=== PATIENT | female | born 1930 | race Caucasian/White ===

== ENCOUNTER 2016-07-01 08:32 | Emergency (ER) | payer MEDICARE ==
[2016-07-01] MEDS ORDERED: methylPREDNISolone 125 MG* 2 ML VIAL IV ONE (09:02)
[2016-07-01] MEDS ORDERED: Albuterol/Ipratropium NEB.SOL* Albuterol 2.5 MG/Ipratropium 0.5 MG 3 ML INH ONE (09:02)
[2016-07-01 09:36] LABS: Hematocrit 37 % (35-47); Hemoglobin 12.2 g/dl (12.0-16.0); Mean Corpuscular HGB Conc 33 g/dl (31-36); Mean Corpuscular Hemoglobin 30 pg (27-31); Mean Corpuscular Volume 89 fL (80-97); Mean Platelet Volume 8 um3 (7.4-10.4); Red Blood Count 4.11 10^6/ul (4.0-5.4); Red Cell Distribution Width 15 % (10.5-15); White Blood Count 16.5 10^3/ul (3.5-10.8)
--- NOTE | 2016-07-01 09:47 | RAD ---
Indication: Shortness of breath. Single frontal view of the chest performed at 0905 hours was reviewed. Comparison is made with previous exam dated January 27, 2016. No mediastinal shift is noted. Heart is of normal size and configuration. Lung diego appear clear. There may be some minimal atelectasis in the right lung base. IMPRESSION: LIKELY DISCOID ATELECTASIS IN THE RIGHT LUNG BASE.
[2016-07-01 09:48] LABS: Albumin 4.1 g/dL (3.2-5.2); BUN/Creatinine Ratio 18.4 (8-20); Calcium 9.6 mg/dL (8.6-10.3); EGFR African American 69.2 (>60); EGFR Non-African American 53.8 (>60); Globulin 3.1 g/dL (2-4); Potassium 4.1 mmol/L (3.5-5.0); Total Bilirubin 0.8 mg/dL (0.2-1.0); Total Protein 7.2 g/dL (6.4-8.9)
--- NOTE | 2016-07-01 09:48 | RAD ---
INDICATION: Right leg pain and shortness of breath. COMPARISON: There are no prior studies available for comparison. TECHNIQUE: Multiple real-time, color flow and Doppler tracings of the right lower extremity were obtained. FINDINGS: The common femoral, femoral, profunda femoral and popliteal veins all demonstrate normal compressibility, augmentation with compression and phasic response with respiration. The posterior tibial and peroneal veins demonstrate normal compressibility and augmentation with compression. IMPRESSION: NO EVIDENCE FOR DEEP VENOUS THROMBOSIS.
[2016-07-01 09:50] LABS: Troponin I 0.01 ng/mL (<0.04)
[2016-07-01 11:06] VITALS: BP 124/56
--- NOTE | 2016-07-02 08:07 | ED ---
Jemal Troy Adam, scribed for Dennis James MD on 07/01/16 at 0844 . Respiratory - HPI Summary HPI Summary: 86 year old female arrived to [facility] complaining of a constant cough and difficulty breathing. Her cough began three days ago, but worsened last night and waxes and wanes in its severity. She describes her cough as 'slightly" productive, but denies any fever. Additionally she has chronic right leg pain shooting down from hip, which is not significantly different from baseline. The patient has at home nebulizers which previously relieved her symptoms, but she states that they are no longer helping. She has a PMHx of UC, appendicitis, ovarian cyst removal, and pancreatitis. - History of Current Complaint Chief Complaint: EDAsthma Stated Complaint: DIFF BREATHING Time Seen by Provider: 07/01/16 08:41 Hx Obtained From: Patient Onset/Duration: Gradual Onset Initial Severity: Moderate Current Severity: Moderate Character: Cough (Productive) - slightly productive Sputum Amount: Scant Alleviating Factor(s): Neb. Bronchodilators (Frequency Of Use) - At home nebulizers no longer effective Associated Signs and Symptoms: SOB, Wheezing - Allergy/Home Medications Allergies/Adverse Reactions: Allergies Allergy/AdvReac Type Severity Reaction Status Date / Time Collagen Allergy Unknown Unknown Verified 12/16/15 08:54 Reaction Details Levofloxacin [From Levaquin] Allergy Hives Verified 12/16/15 08:54 Estrogens AdvReac Mild See Comment Verified 12/16/15 08:54 PMH/Surg Hx/FS Hx/Imm Hx Endocrine/Hematology History: Denies: Hx Anticoagulant Therapy, Hx Diabetes, Hx Systemic Lupus Erythematosus, Hx Thyroid Disease Cardiovascular History: Reports: Hx Hypercholesterolemia, Hx Hypertension, Other Cardiovascular Problems/Disorders - aortic athlerosclerosis Denies: Hx Congestive Heart Failure, Hx Pacemaker/ICD Respiratory History: Reports: Hx Asthma, Hx Chronic Obstructive Pulmonary Disease (COPD) GI History: Reports: Hx Gastroesophageal Reflux Disease, Hx Ileostomy, Hx Ulcer , Other GI Disorders - hx colitis with large colon removed,hx pancreatitis current epigastric pain History: Reports: Hx Kidney Infection, Hx Kidney Stones, Other Problems/ Disorders - Kidney infection Denies: Hx Dialysis, Hx Renal Disease Musculoskeletal History: Reports: Hx Arthritis, Hx Osteoporosis, Other Musculoskeletal History - fx: left wrist and ankle Denies: Hx Rheumatoid Arthritis Sensory History: Reports: Hx Cataracts, Hx Contacts or Glasses, Hx Vision Problem Opthamlomology History: Reports: Hx Cataracts, Hx Contacts or Glasses, Hx Vision Problem Neurological History: Denies: Hx Dementia, Hx Seizures Psychiatric History: Denies: Hx Substance Abuse - Cancer History Hx Chemotherapy: No - Surgical History Surgery Procedure, Year, and Place: hysterectomy, large intestine r/t colitis, zee, cataracts, cholecystectomy, appendectomy Hx Anesthesia Reactions: No - Immunization History Date of Tetanus Vaccine: unknown Date of Influenza Vaccine: 2013 Infectious Disease History: No Infectious Disease History: Denies: Hx Clostridium Difficile, Hx Hepatitis, Hx Human Immunodeficiency Virus (HIV), Hx of Known/Suspected MRSA, Hx Shingles, Hx Tuberculosis, Hx Known/ Suspected VRE, Hx Known/Suspected VRSA, Traveled Outside the [place] in Last 30 Days - Family History Known Family History: Positive: Other Negative: Cardiac Disease, Diabetes Family History: Father -- pancreatic CA. - Social History Alcohol Use: None Hx Substance Use: No Substance Use Type: Reports: None Hx Tobacco Use: Yes Smoking Status (MU): Former Smoker Review of Systems Negative: Fever, Chills Negative: Erythema Negative: Sore Throat Positive: Shortness Of Breath, Cough Negative: Vomiting, Diarrhea, Nausea Negative: dysuria, hematuria Negative: Myalgia Negative: Rash, Other Neurological: Other - no dizziness All Other Systems Reviewed And Are Negative: Yes Physical Exam - Summary Physical Exam Summary: Constitutional: Well-developed, Well-nourished, Alert. (-) Distressed Skin: Warm, Dry HENT: Normocephalic; Atraumatic Eyes: Conjunctiva normal Neck: Musculoskeletal ROM normal neck. (-) JVD, (-) Stridor, (-) Tracheal deviation Cardio: Rhythm regular, rate normal, Heart sounds normal; Intact distal pulses; The pedal pulses are 2+ and symmetric. Radial pulses are 2+ and symmetric. (-) Murmur Pulmonary/Chest wall: Expiratory wheezes, tachypnea, no palpable tenderness or swelling, (-) Rales Abd: Soft, (-) Tenderness, (-) Distension, (-) Guarding, (-) Rebound Musculoskeletal: (-) Edema Lymph: (-) Cervical adenopathy Neuro: Alert, Oriented x3 Psych: Mood and affect Normal Triage Information Reviewed: Yes Vital Signs On Initial Exam: Initial Vitals Temp Pulse Resp BP Pulse Ox 98.1 F 107 24 142/78 100 07/01/16 08:34 07/01/16 08:34 07/01/16 08:34 07/01/16 08:34 07/01/16 08:34 Vital Signs Reviewed: Yes Diagnostics - Vital Signs Vital Signs Temp Pulse Resp BP Pulse Ox 07/01/16 08:34 98.1 F 107 24 142/78 100 - Laboratory Lab Results: Lab Results 07/01/16 07/01/16 07/01/16 Range/Units 09:15 09:15 09:15 WBC 16.5 H (3.5-10.8) 10^3/ul RBC 4.11 (4.0-5.4) 10^6/ul Hgb 12.2 (12.0-16.0) g/dl Hct 37 (35-47) % MCV 89 (80-97) fL MCH 30 (27-31) pg MCHC 33 (31-36) g/dl RDW 15 (10.5-15) % Plt Count 337 (150-450) 10^3/ul MPV 8 (7.4-10.4) um3 Neut % (Auto) 83.8 H (38-83) % Lymph % (Auto) 7.1 L (25-47) % [place] % (Auto) 6.2 (1-9) % Eos % (Auto) 2.2 (0-6) % Baso % (Auto) 0.7 (0-2) % Absolute Neuts (auto) 13.8 H (1.5-7.7) 10^3/ul Absolute Lymphs (auto) 1.2 (1.0-4.8) 10^3/ul Absolute Monos (auto) 1.0 H (0-0.8) 10^3/ul Absolute Eos (auto) 0.4 (0-0.6) 10^3/ul Absolute Basos (auto) 0.1 (0-0.2) 10^3/ul Absolute Nucleated RBC 0.01 10^3/ul Nucleated RBC % 0.1 D-Dimer, Quantitative (Less Than 230) ng/mL Sodium 136 (133-145) mmol/L Potassium 4.1 (3.5-5.0) mmol/L Chloride 105 (101-111) mmol/L Carbon Dioxide 20 L (22-32) mmol/L Anion Gap 11 (2-11) mmol/L BUN 18 (6-24) mg/dL Creatinine 0.98 H (0.51-0.95) mg/dL Est GFR ( Amer) 69.2 (>60) Est GFR (Non-Af Amer) 53.8 (>60) BUN/Creatinine Ratio 18.4 (8-20) Glucose 112 H (70-100) mg/dL Lactic Acid 1.1 (0.5-2.0) mmol/L Calcium 9.6 (8.6-10.3) mg/dL Total Bilirubin 0.80 (0.2-1.0) mg/dL AST 19 (13-39) U/L ALT 14 (7-52) U/L Alkaline Phosphatase 58 (34-104) U/L Troponin I 0.01 (<0.04) ng/mL Total Protein 7.2 (6.4-8.9) g/dL Albumin 4.1 (3.2-5.2) g/dL Globulin 3.1 (2-4) g/dL Albumin/Globulin Ratio 1.3 (1-3) 07/01/16 Range/Units 09:15 WBC (3.5-10.8) 10^3/ul RBC (4.0-5.4) 10^6/ul Hgb (12.0-16.0) g/dl Hct (35-47) % MCV (80-97) fL MCH (27-31) pg MCHC (31-36) g/dl RDW (10.5-15) % Plt Count (150-450) 10^3/ul MPV (7.4-10.4) um3 Neut % (Auto) (38-83) % Lymph % (Auto) (25-47) % [place] % (Auto) (1-9) % Eos % (Auto) (0-6) % Baso % (Auto) (0-2) % Absolute Neuts (auto) (1.5-7.7) 10^3/ul Absolute Lymphs (auto) (1.0-4.8) 10^3/ul Absolute Monos (auto) (0-0.8) 10^3/ul Absolute Eos (auto) (0-0.6) 10^3/ul Absolute Basos (auto) (0-0.2) 10^3/ul Absolute Nucleated RBC 10^3/ul Nucleated RBC % D-Dimer, Quantitative 208 (Less Than 230) ng/mL Sodium (133-145) mmol/L Potassium (3.5-5.0) mmol/L Chloride (101-111) mmol/L Carbon Dioxide (22-32) mmol/L Anion Gap (2-11) mmol/L BUN (6-24) mg/dL Creatinine (0.51-0.95) mg/dL Est GFR ( Amer) (>60) Est GFR (Non-Af Amer) (>60) BUN/Creatinine Ratio (8-20) Glucose (70-100) mg/dL Lactic Acid (0.5-2.0) mmol/L Calcium (8.6-10.3) mg/dL Total Bilirubin (0.2-1.0) mg/dL AST (13-39) U/L ALT (7-52) U/L Alkaline Phosphatase (34-104) U/L Troponin I (<0.04) ng/mL Total Protein (6.4-8.9) g/dL Albumin (3.2-5.2) g/dL Globulin (2-4) g/dL Albumin/Globulin Ratio (1-3) Result Diagrams: 07/01/16 09:15 07/01/16 09:15 Lab Statement: Any lab studies that have been ordered have been reviewed, and results considered in the medical decision making process. - Radiology CXR Radiology Interpretation Completed By: Radiologist - IMPRESSION: LIKELY DISCOID ATELECTASIS IN THE RIGHT LUNG BASE. - Ultrasound No standard instances Ultrasound Interpretation Completed By: Radiologist - IMPRESSION: NO EVIDENCE FOR DEEP VENOUS THROMBOSIS. - EKG 09:30 Cardiac Rate: NL - 102 BPM EKG Rhythm: Sinus Tachycardia EKG Interpretation: no STEMI Disposition - Course Course Of Treatment: 11:25 - Pt is feeling much better. She ambulated and her o2 sat was 92%. She will be discharged home and follow up with her PCP in 2 days. - Diagnoses Provider Diagnoses: COPD exacerbation Discharge - Discharge Plan Condition: Stable Disposition: HOME Prescriptions: Albuterol/Ipratropium NEB.VIRGILIO* [Duoneb NEB.VIRGILIO*] 1 neb INH Q4H PRN #30 neb.soln PRN Reason: Sob/Wheezing DOXYcycline CAP(*) [DOXYcycline 100MG CAP(*)] 100 mg PO BID #14 cap predniSONE TAB* [Deltasone TAB*] 40 mg PO DAILY #8 tab Patient Education Materials: COPD (Chronic Obstructive Pulmonary Disease) (ED) Referrals: Halie Kulkarni MD [Primary Care Provider] - Additional Instructions: Follow up with Dr. Kulkarni in 2 days. The documentation as recorded by the Jemal greenberg Adam accurately reflects the service I personally performed and the decisions made by Erika ga Jerry, MD.
== END 2016-07-01 12:42 | disposition home or self-care (01) ==
LOC: ED 08:32
DX: J44.1 Chronic obstructive pulmonary disease with (acute) exacerbation (principal); I10 Essential (primary) hypertension; Z87.891 Personal history of nicotine dependence; E78.00 Pure hypercholesterolemia, unspecified; K21.9 Gastro-esophageal reflux disease without esophagitis; M79.604 Pain in right leg; G89.29 Other chronic pain
CPT/HCPCS: 36415; 71010; 80053; 83605; 84484; 85025; 85379; 93005; 94640; 96374; 99283; A9270-GY; J2930

== ENCOUNTER 2016-10-21 05:12 | Emergency (ER) | payer MEDICARE ==
[2016-10-21] MEDS ORDERED: Ondansetron INJ* 2 MG/ML VIAL IV ONE (05:22)
[2016-10-21] MEDS ORDERED: Morphine INJ* 4 MG/ML 1 ML SYRINGE IV ONE ×2 (05:22→06:29)
[2016-10-21] MEDS ORDERED: NS 0.9% 1000 ML* 1,000 ML IV ONE (05:22)
[2016-10-21 06:00] LABS: Hematocrit 40 % (35-47); Mean Corpuscular HGB Conc 33 g/dl (31-36); Mean Corpuscular Hemoglobin 29 pg (27-31); Mean Corpuscular Volume 90 fL (80-97); Mean Platelet Volume 8 um3 (7.4-10.4); Red Blood Count 4.45 10^6/ul (4.0-5.4); Red Cell Distribution Width 14 % (10.5-15); White Blood Count 15.4 10^3/ul (3.5-10.8)
[2016-10-21 06:09] LABS: Albumin 4.3 g/dL (3.2-5.2); BUN/Creatinine Ratio 21.5 (8-20); C Reactive Protein 10.34 mg/L (< 5.00); Calcium 9.4 mg/dL (8.6-10.3); EGFR African American 54.3 (>60); EGFR Non-African American 42.2 (>60); Globulin 2.7 g/dL (2-4); Potassium 4.2 mmol/L (3.5-5.0); Total Bilirubin 0.6 mg/dL (0.2-1.0)
--- NOTE | 2016-10-21 07:00 | ED ---
Shagufta Troy Alok, scribed for Kendra Dsouza MD on 10/21/16 at 0525 . Abdominal Pain/Female - HPI Summary HPI Summary: 86F presents to the ED with LLQ pain radiating to the LUQ since 0100 this evening. Pt has h/o kidney stones and states that her pain feels similar to that. PMHx includes chronic dyspnea ever since her bladder lift. - History of Current Complaint Chief Complaint: EDAbdPain Stated Complaint: ABD PAIN Hx Obtained From: Patient ?: No Onset/Duration: Lasting Hours, Still Present Timing: Constant Severity Initially: Moderate Severity Currently: Moderate Pain Intensity: 9 Pain Scale Used: 0-10 Numeric Location: Discrete At: LLQ Radiates: Yes Radiates to: Other - LUQ Aggravating Factor(s): Nothing Alleviating Factor(s): Nothing Associated Signs and Symptoms: Positive: Urinary Symptoms - dysuria (chronic). Negative: Fever Allergies/Adverse Reactions: Allergies Allergy/AdvReac Type Severity Reaction Status Date / Time Collagen Allergy Unknown Unknown Verified 10/21/16 05:15 Reaction Details Levofloxacin [From Levaquin] Allergy Hives Verified 10/21/16 05:15 Estrogens AdvReac Mild See Comment Verified 10/21/16 05:15 PMH/Surg Hx/FS Hx/Imm Hx Endocrine/Hematology History: Denies: Hx Anticoagulant Therapy, Hx Diabetes, Hx Systemic Lupus Erythematosus, Hx Thyroid Disease Cardiovascular History: Reports: Hx Hypercholesterolemia, Hx Hypertension, Other Cardiovascular Problems/Disorders - aortic athlerosclerosis Denies: Hx Congestive Heart Failure, Hx Pacemaker/ICD Respiratory History: Reports: Hx Asthma, Hx Chronic Obstructive Pulmonary Disease (COPD) GI History: Reports: Hx Gastroesophageal Reflux Disease, Hx Ileostomy, Hx Ulcer , Other GI Disorders - hx colitis with large colon removed,hx pancreatitis current epigastric pain History: Reports: Hx Kidney Infection, Hx Kidney Stones, Other Problems/ Disorders - Kidney infection Denies: Hx Dialysis, Hx Renal Disease Musculoskeletal History: Reports: Hx Arthritis, Hx Osteoporosis, Other Musculoskeletal History - fx: left wrist and ankle Denies: Hx Rheumatoid Arthritis Sensory History: Reports: Hx Cataracts, Hx Contacts or Glasses, Hx Vision Problem Opthamlomology History: Reports: Hx Cataracts, Hx Contacts or Glasses, Hx Vision Problem Neurological History: Denies: Hx Dementia, Hx Seizures Psychiatric History: Denies: Hx Substance Abuse - Cancer History Hx Chemotherapy: No - Surgical History Surgery Procedure, Year, and Place: hysterectomy, large intestine r/t colitis, zee, cataracts, cholecystectomy, appendectomy Hx Anesthesia Reactions: No - Immunization History Date of Tetanus Vaccine: unknown Date of Influenza Vaccine: 2013 Infectious Disease History: No Infectious Disease History: Denies: Hx Clostridium Difficile, Hx Hepatitis, Hx Human Immunodeficiency Virus (HIV), Hx of Known/Suspected MRSA, Hx Shingles, Hx Tuberculosis, Hx Known/ Suspected VRE, Hx Known/Suspected VRSA, Traveled Outside the [place] in Last 30 Days - Family History Known Family History: Negative: Cardiac Disease, Diabetes Family History: Father -- pancreatic CA. - Social History Occupation: Retired Lives: Alone Alcohol Use: None Hx Substance Use: No Substance Use Type: Reports: None Hx Tobacco Use: Yes Smoking Status (MU): Former Smoker Review of Systems Negative: Fever Positive: dysuria - (chronic), flank pain All Other Systems Reviewed And Are Negative: Yes Physical Exam Triage Information Reviewed: Yes Vital Signs On Initial Exam: Initial Vitals Temp Pulse Resp BP Pulse Ox 97.7 F 79 18 185/59 97 10/21/16 05:15 10/21/16 05:15 10/21/16 05:15 10/21/16 05:15 10/21/16 05:15 Vital Signs Reviewed: Yes Appearance: Positive: Well-Appearing, No Pain Distress Skin: Positive: Warm, Skin Color Reflects Adequate Perfusion, Dry Eyes: Positive: EOMI, LISSETTE ENT: Positive: Pharynx normal, TMs normal Neck: Positive: Supple, Nontender Respiratory/Lung Sounds: Positive: Clear to Auscultation, Breath Sounds Present. Negative: Rales, Rhonchi, Wheezes Cardiovascular: Positive: RRR, Other - no gallop. Negative: Murmur, Rub Abdomen Description: Positive: Soft, Other: - no rebound. Left flank pain. No abdominal tenderness. Bowel Sounds: Positive: Present Musculoskeletal: Positive: Strength/ROM Intact, Other - CVA tenderness. Negative: Edema Left, Edema Right Neurological: Positive: Sensory/Motor Intact, Alert, Oriented to Person Place, Time, CN Intact II-III Psychiatric: Positive: Affect/Mood Appropriate Diagnostics - Vital Signs Vital Signs Temp Pulse Resp BP Pulse Ox 10/21/16 05:17 97.7 F 79 18 185/59 97 10/21/16 05:15 97.7 F 79 18 [id number] 97 - Laboratory Lab Results: Lab Results 10/21/16 10/21/16 10/21/16 Range/Units 05:30 05:30 05:30 WBC 15.4 H (3.5-10.8) 10^3/ul RBC 4.45 (4.0-5.4) 10^6/ul Hgb 13.0 (12.0-16.0) g/dl Hct 40 (35-47) % MCV 90 (80-97) fL MCH 29 (27-31) pg MCHC 33 (31-36) g/dl RDW 14 (10.5-15) % Plt Count 365 (150-450) 10^3/ul MPV 8 (7.4-10.4) um3 Neut % (Auto) 85.5 H (38-83) % Lymph % (Auto) 8.0 L (25-47) % [place] % (Auto) 4.5 (1-9) % Eos % (Auto) 1.3 (0-6) % Baso % (Auto) 0.7 (0-2) % Absolute Neuts (auto) 13.2 H (1.5-7.7) 10^3/ul Absolute Lymphs (auto) 1.2 (1.0-4.8) 10^3/ul Absolute Monos (auto) 0.7 (0-0.8) 10^3/ul Absolute Eos (auto) 0.2 (0-0.6) 10^3/ul Absolute Basos (auto) 0.1 (0-0.2) 10^3/ul Absolute Nucleated RBC 0.01 10^3/ul Nucleated RBC % 0.1 Sodium 135 (133-145) mmol/L Potassium 4.2 (3.5-5.0) mmol/L Chloride 108 (101-111) mmol/L Carbon Dioxide 21 L (22-32) mmol/L Anion Gap 6 (2-11) mmol/L BUN 26 H (6-24) mg/dL Creatinine 1.21 H (0.51-0.95) mg/dL Est GFR ( Amer) 54.3 (>60) Est GFR (Non-Af Amer) 42.2 (>60) BUN/Creatinine Ratio 21.5 H (8-20) Glucose 112 H (70-100) mg/dL Lactic Acid 1.2 (0.5-2.0) mmol/L Calcium 9.4 (8.6-10.3) mg/dL Total Bilirubin 0.60 (0.2-1.0) mg/dL AST 15 (13-39) U/L ALT 12 (7-52) U/L Alkaline Phosphatase 48 (34-104) U/L C-Reactive Protein 10.34 H (< 5.00) mg/L Total Protein 7.0 (6.4-8.9) g/dL Albumin 4.3 (3.2-5.2) g/dL Globulin 2.7 (2-4) g/dL Albumin/Globulin Ratio 1.6 (1-3) Lipase 257 H (11.0-82.0) U/L Result Diagrams: 10/21/16 05:30 10/21/16 05:30 Lab Statement: Any lab studies that have been ordered have been reviewed, and results considered in the medical decision making process. - CT abd/pel CT CT Interpretation: Positive (See Comments) - IMPRESSION: OBSTRUCTING CALCULUS IN THE DISTAL LEFT URETER CT Interpretation Completed By: Radiologist Abdominal Pain Fem Course/Dx - Course Course Of Treatment: 86 yo female with chronic pancreatitis no pain now, but with left flank pain and 3 mm ureteral stone, pt will be signed out to Dr. Newsome , urine still needs to be obtained - Diagnoses Provider Diagnoses: Ureteral stone Discharge - Discharge Plan Condition: Stable Disposition: OTHER Discharge Disposition Comment: to be determined The documentation as recorded by the Shagufta greenberg Alok accurately reflects the service I personally performed and the decisions made by me, Kendra Dsouza MD.
[2016-10-21] MEDS ORDERED: NS 0.9% 1000 ML* 500 ML IV ONE (08:01)
--- NOTE | 2016-10-21 08:37 | RAD ---
INDICATION: Left flank abdominal pain. COMPARISON: Comparison is made with a prior CT of the abdomen and pelvis from January 27, 2016. TECHNIQUE: A CT scan of the abdomen and pelvis was performed without intravenous or oral contrast. Contiguous axial sections were obtained from the lung bases through the symphysis pubis. Images were reconstructed in the coronal and sagittal planes. FINDINGS: There is mild to moderate emphysematous changes noted at the lung bases. There is a small Bochdalek hernia present at the posterior right lung base containing fat. No pleural effusion is present. The liver and spleen are normal in size without significant focal abnormality on this noncontrast study. The patient is status post cholecystectomy. The pancreas appears to be within normal limits. The adrenal glands are normal in size. The right kidney is normal in size there is a 4 mm calculus in the lower pole of the kidney. The left kidney appears slightly enlarged. There is mild perinephric stranding. There is a 1 mm calculus in the midportion of the kidney. In addition the left renal calyces, pelvis and ureter are distended into the pelvis to the level of a 3.5 mm calculus in the distal left ureter which is located approximate 4 cm proximal to the ureterovesical junction. This is causing moderate hydronephrosis. The abdominal aorta is normal in caliber. There is moderate to severe calcific plaque present. No significant enlarged retroperitoneal lymph nodes are seen. The stomach and small bowel are nondistended. The patient is status post total colectomy. There is an ileostomy in the right lower quadrant. The patient is status post hysterectomy. No free intraperitoneal air or fluid is seen. There is grade 1 anterior spondylolisthesis at the L4-L5 level. No significant focal osseous abnormality is seen. IMPRESSION: 1. BILATERAL RENAL CALCULI. IN ADDITION THERE IS A 3.5 MM CALCULUS IN THE DISTAL LEFT URETER CAUSING MODERATE HYDRONEPHROSIS. 2. STATUS POST CHOLECYSTECTOMY, HYSTERECTOMY AND TOTAL COLECTOMY. THERE IS AN ILEOSTOMY IN THE RIGHT LOWER QUADRANT.
[2016-10-21 10:09] LABS: Urine Bacteria 1+ (Absent); Urine Bilirubin Negative (Negative); Urine Glucose Negative (Negative); Urine Nitrite Positive (Negative)
[2016-10-21] MEDS ORDERED: Sulfamethox/Trimethoprim DS 800/160* TAB PO ONE (10:32)
[2016-10-21 11:13] VITALS: BP 139/52
== END 2016-10-21 11:13 | disposition home or self-care (01) ==
LOC: ED 05:12
DX: R10.12 Left upper quadrant pain (principal); N21.1 Calculus in urethra; R30.0 Dysuria
CPT/HCPCS: 36415; 74176; 80053; 81003; 81015; 83605; 83690; 85025; 86140; 87086; 96374; 96375; 99283; A9270-GY; J2270; J2405

== ENCOUNTER 2016-12-07 07:29 | Emergency (ER) | payer MEDICARE ==
[2016-12-07 07:35] VITALS: BP 164/80
[2016-12-07] MEDS ORDERED: Orphenadrine Citrate IV* 30 MG/ML 2 ML VIAL IV ONE (08:01)
[2016-12-07] MEDS ORDERED: fentaNYL* 50 MCG/ML 2 ML VIAL (100 MCG VIAL) IV SLOW PU ONE (08:01)
[2016-12-07] MEDS ORDERED: Dexamethasone IV* 4 MG/ML 1 ML (4 MG) IV SLOW PU ONE (08:01)
[2016-12-07] MEDS ORDERED: Ondansetron INJ* 2 MG/ML VIAL IV ONE (08:01)
[2016-12-07] MEDS ORDERED: Ketorolac INJ* 30 MG/ML 1 ML VIAL IV PUSH ONE (09:03)
--- NOTE | 2016-12-07 09:35 | RAD ---
Indication: RIGHT hip and leg pain. Sciatica pain. Comparison: October 21, 2016 CT. Technique: AP and lateral views lumbar sacral spine. Report: Grade 2 degenerative L4-L5 anterolisthesis is chronic. Alignment is otherwise normal. No vertebral body fracture or gross evidence for spondylolysis. Mild to moderate L4-L5 disc space narrowing without change. Facet joint osteoarthritis most marked at L4-L5 and L5-S1. Atherosclerotic calcification of the abdominal aorta. Unremarkable paraspinal soft tissue contours. Gallbladder fossa level surgical clips. IMPRESSION: Chronic findings of degenerative spondylosis, facet joint osteoarthritis, and grade 2 degenerative L4-L5 anterolisthesis. No acute radiographic abnormality evident.
--- NOTE | 2016-12-07 09:37 | RAD ---
Indication: RIGHT hip pain. Sciatica. Comparison: October 21, 2016 CT. Technique: AP pelvis and AP and frog-leg lateral views RIGHT hip. Report: Negative for fracture of the RIGHT proximal femur or pelvis. Normal articular alignment. Minimal osteophytic lipping at the RIGHT acetabulum. Negative for significant hip joint space narrowing. Similar mild arthropathy at the LEFT hip. Mild degenerative arthropathy at the sacroiliac joints and pubic symphysis. Unremarkable soft tissue contours. 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
--- NOTE | 2016-12-07 11:42 | ED ---
Sandra Troy SooYoung, scribed for Tin Newsome MD on 12/07/16 at 0806 . Lower Extremity - HPI Summary HPI Summary: An 86 y/o F presents to ED with c/o R hip and leg pain onset 0100. She notes having previous episodes of similar pain, but this episode feels worse. Unsure of the previous dx, but remembers being given a shot for the pain. Both daughter and pt think it may be sciatica-related. Denies back pain. Aggravating factors: walking. Pert PMHx: osteoporosis. - History of Current Complaint Chief Complaint: EDHipPelvisInjury Stated Complaint: RIGHT LEG AND HIP PAIN Time Seen by Provider: 12/07/16 07:55 Hx Obtained From: Patient, Family/Workday Director - daughter Onset of Pain: Hours - approx 0100, Prior to Arrival Onset/Duration: Still Present Severity Currently: Severe Pain Intensity: 9 Pain Scale Used: 0-10 Numeric Timing: Constant Location: Is Discrete @ - R hip, R thigh Associated Signs And Symptoms: Positive: Other - neg: back pain Aggravating Factor(s): Ambulation - Allergies/Home Medications Allergies/Adverse Reactions: Allergies Allergy/AdvReac Type Severity Reaction Status Date / Time Collagen Allergy Unknown Unknown Verified 12/07/16 07:59 Reaction Details Levofloxacin [From Levaquin] Allergy Hives Verified 12/07/16 07:59 Estrogens AdvReac Mild See Comment Verified 12/07/16 07:59 PMH/Surg Hx/FS Hx/Imm Hx Previously Healthy: No Endocrine/Hematology History: Denies: Hx Anticoagulant Therapy, Hx Diabetes, Hx Systemic Lupus Erythematosus, Hx Thyroid Disease Cardiovascular History: Reports: Hx Hypercholesterolemia, Hx Hypertension, Other Cardiovascular Problems/Disorders - aortic athlerosclerosis Denies: Hx Congestive Heart Failure, Hx Pacemaker/ICD Respiratory History: Reports: Hx Asthma, Hx Chronic Obstructive Pulmonary Disease (COPD) GI History: Reports: Hx Gastroesophageal Reflux Disease, Hx Ileostomy, Hx Ulcer , Other GI Disorders - hx colitis with large colon removed,hx pancreatitis current epigastric pain History: Reports: Hx Kidney Infection, Hx Kidney Stones, Other Problems/ Disorders - Kidney infection Denies: Hx Dialysis, Hx Renal Disease Musculoskeletal History: Reports: Hx Arthritis, Hx Osteoporosis, Other Musculoskeletal History - fx: left wrist and ankle Denies: Hx Rheumatoid Arthritis Sensory History: Reports: Hx Cataracts, Hx Contacts or Glasses, Hx Vision Problem Opthamlomology History: Reports: Hx Cataracts, Hx Contacts or Glasses, Hx Vision Problem Neurological History: Denies: Hx Dementia, Hx Seizures Psychiatric History: Denies: Hx Substance Abuse - Cancer History Hx Chemotherapy: No - Surgical History Surgery Procedure, Year, and Place: hysterectomy, large intestine r/t colitis, zee, cataracts, cholecystectomy, appendectomy Hx Anesthesia Reactions: No - Immunization History Date of Tetanus Vaccine: unknown Date of Influenza Vaccine: 2013 Infectious Disease History: No Infectious Disease History: Denies: Hx Clostridium Difficile, Hx Hepatitis, Hx Human Immunodeficiency Virus (HIV), Hx of Known/Suspected MRSA, Hx Shingles, Hx Tuberculosis, Hx Known/ Suspected VRE, Hx Known/Suspected VRSA, Traveled Outside the [place] in Last 30 Days - Family History Known Family History: Positive: Other Negative: Cardiac Disease, Diabetes Family History: Father -- pancreatic CA. - Social History Occupation: Retired Lives: Alone Alcohol Use: None Hx Substance Use: No Substance Use Type: Reports: None Hx Tobacco Use: Yes Smoking Status (MU): Former Smoker Review of Systems Negative: Fever Positive: Other - pos: R hip and thigh pain; neg back pain All Other Systems Reviewed And Are Negative: Yes Physical Exam - Summary Physical Exam Summary: VITAL SIGNS: Reviewed. GENERAL: Patient is a well-developed and nourished female who is lying comfortable in the stretcher. Patient is not in any acute respiratory distress. HEAD AND FACE: No signs of trauma. No ecchymosis, hematomas or skull depressions. No sinus tenderness. EYES: PERRLA, EOMI x 2, No injected conjunctiva, no nystagmus. EARS: Hearing grossly intact. Ear canals and tympanic membranes are within normal limits. MOUTH: Oropharynx within normal limits. NECK: Supple, trachea is midline, no adenopathy, no JVD, no carotid bruit, no c- spine tenderness, neck with full ROM. CHEST: Symmetric, no tenderness at palpation LUNGS: Clear to auscultation bilaterally. No wheezing or crackles. CVS: Regular rate and rhythm, S1 and S2 present, no murmurs or gallops appreciated. ABDOMEN: Soft, non-tender. No signs of distention. No rebound, no guarding, and no masses palpated. Bowel sounds are normal. EXTREMITIES: POSITIVE TENDERNESS FROM R GLUTEUS INTO LATERAL ASPECT OF R THIGH, GOOD ROM WITH PULSES. STRAIGHT LEG TEST IS NEGATIVE. no edema, no cyanosis or clubbing. NEURO: Alert and oriented x 3. No acute neurological deficits. Speech is normal and follows commands. SKIN: Dry and warm Triage Information Reviewed: Yes Vital Signs On Initial Exam: Initial Vitals Temp Pulse Resp BP Pulse Ox 98.7 F 79 16 164/80 97 12/07/16 07:31 12/07/16 07:31 12/07/16 07:31 12/07/16 07:31 12/07/16 07:31 Vital Signs Reviewed: Yes Diagnostics - Vital Signs Vital Signs Temp Pulse Resp BP Pulse Ox 12/07/16 07:56 98.7 F 79 16 164/80 97 12/07/16 07:31 98.7 F 79 16 164/80 97 - Laboratory Lab Statement: Any lab studies that have been ordered have been reviewed, and results considered in the medical decision making process. - Radiology L-SPINE XR Xray Interpretation: No Acute Changes - IMPRESSION: Chronic findings of degenerative spondylosis, facet joint osteoarthritis, and grade 2 degenerative L4-L5 anterolisthesis. No acute radiographic abnormality evident. 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 Radiology Interpretation Completed By: Radiologist Re-Evaluation - Re-Evaluation 1 Re-Evaluation Time: 09:52 Change: Improved Comment: Discussing XR results with pt and dispo plan. Pain is almost resolved. Pt and family voiced understanding. Lower Extremity Course/Dx - Course Course Of Treatment: An 86 y/o F presents to ED with c/o R hip and leg pain onset 99. She notes having previous episodes of similar pain, but this episode feels worse. Unsure of the previous dx, but remembers being given a shot for the pain. Both daughter and pt think it may be sciatica-related. Denies back pain. Aggravating factors: walking. Pert PMHx: osteoporosis. L- SPINE XR results show no acute findings. 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 Pt given Decadron, Fentanyl, Zofran, Norflex, Toradol in ED for pain. Pts pain improved. Pt is ambulating without significant pain. Therefore, believe pain is secondary to chronic back pain and sciatica. Pt continues to have good pulses and good cap refill, therefore no suspicion for ischemic changes in the leg. Pt will be D/C with Cornelius, Medrol dosepak, and to f/u with PCP and ortho. Hemodynamically stable, A& Ox3. - Diagnoses Differential Diagnosis/HQI/PQRI: Positive: Arthritis, Bursitis, Contusion, Dislocation, Fracture (Closed) Provider Diagnoses: Hip pain, Sciatica Discharge - Discharge Plan Condition: Stable Disposition: HOME Prescriptions: HYDROcodone/ACETAMIN 5-325 MG* [Cornelius 5-325 TAB*] 1 tab PO Q6H PRN #12 tab MDD 4 /tabs /day PRN Reason: Pain Methylprednisolone [Medrol Dosepak 4 MG*] 0 mg PO .SEE KIMBER INSTRUCTION #1 kimber Patient Education Materials: Hydrocodone/Acetaminophen (By mouth), Methylprednisolone (By mouth), Sciatica (ED), Hip Pain (ED) Referrals: Rocio Arteaga MD [Primary Care Provider] - Additional Instructions: Please return to the ED if you experience new or worsening symptoms. The documentation as recorded by the Sandra greenberg SooYoung accurately reflects the service I personally performed and the decisions made by , Tin Newsome MD.
== END 2016-12-07 10:05 | disposition home or self-care (01) ==
LOC: ED 07:29
DX: M54.31 Sciatica, right side (principal); M25.551 Pain in right hip; I10 Essential (primary) hypertension; E78.00 Pure hypercholesterolemia, unspecified; J44.9 Chronic obstructive pulmonary disease, unspecified; J45.909 Unspecified asthma, uncomplicated; I70.0 Atherosclerosis of aorta; Z87.442 Personal history of urinary calculi; Z87.891 Personal history of nicotine dependence; M16.0 Bilateral primary osteoarthritis of hip; M47.9 Spondylosis, unspecified
CPT/HCPCS: 72100; 96374; 96375; 99283; J1100; J1885; J2360; J2405; J3010

== ENCOUNTER 2017-02-22 10:08 | Inpatient (IN) | payer MEDICARE ==
[2017-02-22 11:10] LABS: Hematocrit 34 % (35-47); Hemoglobin 11.7 g/dl (12.0-16.0); Mean Corpuscular HGB Conc 35 g/dl (31-36); Mean Corpuscular Hemoglobin 32 pg (27-31); Mean Corpuscular Volume 90 fL (80-97); Mean Platelet Volume 7 um3 (7.4-10.4); Red Blood Count 3.71 10^6/ul (4.0-5.4); Red Cell Distribution Width 14 % (10.5-15); White Blood Count 17.3 10^3/ul (3.5-10.8)
[2017-02-22] MEDS ORDERED: Ondansetron INJ* 2 MG/ML VIAL IV ONE (11:16)
[2017-02-22] MEDS ORDERED: Morphine INJ* 2 MG/ML 1 ML CARPUJECT IV ONE (11:16)
[2017-02-22 11:26] LABS: Albumin 4.1 g/dL (3.2-5.2); BUN/Creatinine Ratio 15.5 (8-20); C Reactive Protein 12.5 mg/L (< 5.00); Calcium 9.9 mg/dL (8.6-10.3); EGFR African American 65.3 (>60); EGFR Non-African American 50.8 (>60); Globulin 2.8 g/dL (2-4); Total Protein 6.9 g/dL (6.4-8.9)
[2017-02-22] MEDS ORDERED: Morphine INJ* 4 MG/ML 1 ML CARPUJECT ONE (11:26)
--- NOTE | 2017-02-22 12:18 | RAD ---
INDICATION: Aspiration of emesis COMPARISON: Chest x-ray July 01, 2016 TECHNIQUE: PA and lateral views of the chest were obtained. FINDINGS: The heart and mediastinum are normal in size and contour. There is faint linear density overlying the bilateral lung bases. More superiorly the lungs are adequately aerated. Depicted better on the lateral view radiograph, there is costophrenic angle blunting. Visualized bones are normal for the patient's age. There is no radiographic evidence of free air beneath the diaphragm IMPRESSION: INTERVAL APPEARANCE OF FAINT LINEAR DENSITIES AT THE BILATERAL LUNG BASES WELL COSTOPHRENIC ANGLE BLUNTING WHICH COULD BE DUE TO SMALL BIBASILAR PLEURAL EFFUSIONS.
--- NOTE | 2017-02-22 12:40 | ED ---
Abdominal Pain/Female - HPI Summary HPI Summary: 86 female presents to ED with daughter with complaints of RUQ/epigastric pain, nausea and vomiting that began during the night last night - History of Current Complaint Chief Complaint: EDAbdPain Stated Complaint: ABD PAIN Time Seen by Provider: 02/22/17 10:43 Pain Intensity: 10 Allergies/Adverse Reactions: Allergies Allergy/AdvReac Type Severity Reaction Status Date / Time Collagen Allergy Unknown Unknown Verified 02/22/17 10:12 Reaction Details Levofloxacin [From Levaquin] Allergy Hives Verified 02/22/17 10:12 Estrogens AdvReac Mild See Comment Verified 02/22/17 10:12 PMH/Surg Hx/FS Hx/Imm Hx Endocrine/Hematology History: Denies: Hx Anticoagulant Therapy, Hx Diabetes, Hx Systemic Lupus Erythematosus, Hx Thyroid Disease Cardiovascular History: Reports: Hx Hypercholesterolemia, Hx Hypertension, Other Cardiovascular Problems/Disorders - aortic athlerosclerosis Denies: Hx Congestive Heart Failure, Hx Pacemaker/ICD Respiratory History: Reports: Hx Asthma, Hx Chronic Obstructive Pulmonary Disease (COPD) GI History: Reports: Hx Gastroesophageal Reflux Disease, Hx Ileostomy, Hx Ulcer , Other GI Disorders - hx colitis with large colon removed,hx pancreatitis current epigastric pain History: Reports: Hx Kidney Infection, Hx Kidney Stones, Other Problems/ Disorders - Kidney infection Denies: Hx Dialysis, Hx Renal Disease Musculoskeletal History: Reports: Hx Arthritis, Hx Osteoporosis, Other Musculoskeletal History - fx: left wrist and ankle Denies: Hx Rheumatoid Arthritis Sensory History: Reports: Hx Cataracts, Hx Contacts or Glasses, Hx Vision Problem Opthamlomology History: Reports: Hx Cataracts, Hx Contacts or Glasses, Hx Vision Problem Neurological History: Denies: Hx Dementia, Hx Seizures Psychiatric History: Denies: Hx Substance Abuse - Cancer History Hx Chemotherapy: No - Surgical History Surgery Procedure, Year, and Place: hysterectomy, large intestine r/t colitis, zee, cataracts, cholecystectomy, appendectomy Hx Anesthesia Reactions: No - Immunization History Date of Tetanus Vaccine: unknown Date of Influenza Vaccine: 2013 Infectious Disease History: No Infectious Disease History: Denies: Hx Clostridium Difficile, Hx Hepatitis, Hx Human Immunodeficiency Virus (HIV), Hx of Known/Suspected MRSA, Hx Shingles, Hx Tuberculosis, Hx Known/ Suspected VRE, Hx Known/Suspected VRSA, Traveled Outside the [place] in Last 30 Days - Family History Known Family History: Positive: Other Negative: Cardiac Disease, Diabetes Family History: Father -- pancreatic CA. - Social History Alcohol Use: None Hx Substance Use: No Substance Use Type: Reports: None Hx Tobacco Use: Yes Smoking Status (MU): Former Smoker Physical Exam Vital Signs On Initial Exam: Initial Vitals Temp Pulse Resp BP Pulse Ox 97.7 F 89 17 177/53 95 02/22/17 10:09 02/22/17 10:09 02/22/17 10:09 02/22/17 10:09 02/22/17 10:09 - [place] Coma Scale Coma Scale Total: 15 Diagnostics - Vital Signs Vital Signs Temp Pulse Resp BP Pulse Ox 02/22/17 11:29 18 02/22/17 11:00 103 165/64 96 02/22/17 10:30 99 165/64 96 02/22/17 10:23 103 189/83 92 02/22/17 10:09 97.7 F 89 17 177/53 95 - Laboratory Lab Results: Lab Results 02/22/17 02/22/17 02/22/17 Range/Units 11:00 11:00 11:00 WBC 17.3 H (3.5-10.8) 10^3/ul RBC 3.71 L (4.0-5.4) 10^6/ul Hgb 11.7 L (12.0-16.0) g/dl Hct 34 L (35-47) % MCV 90 (80-97) fL MCH 32 H (27-31) pg MCHC 35 (31-36) g/dl RDW 14 (10.5-15) % Plt Count 447 (150-450) 10^3/ul MPV 7 L (7.4-10.4) um3 Neut % (Auto) 95.2 H (38-83) % Lymph % (Auto) 2.8 L (25-47) % Braxton % (Auto) 1.1 (1-9) % Eos % (Auto) 0.7 (0-6) % Baso % (Auto) 0.2 (0-2) % Absolute Neuts (auto) 16.5 H (1.5-7.7) 10^3/ul Absolute Lymphs (auto) 0.5 L (1.0-4.8) 10^3/ul Absolute Monos (auto) 0.2 (0-0.8) 10^3/ul Absolute Eos (auto) 0.1 (0-0.6) 10^3/ul Absolute Basos (auto) 0 (0-0.2) 10^3/ul Absolute Nucleated RBC 0 10^3/ul Nucleated RBC % 0 Sodium 138 (133-145) mmol/L Potassium 4.0 (3.5-5.0) mmol/L Chloride 105 (101-111) mmol/L Carbon Dioxide 23 (22-32) mmol/L Anion Gap 10 (2-11) mmol/L BUN 16 (6-24) mg/dL Creatinine 1.03 H (0.51-0.95) mg/dL Est GFR ( Amer) 65.3 (>60) Est GFR (Non-Af Amer) 50.8 (>60) BUN/Creatinine Ratio 15.5 (8-20) Glucose 110 H (70-100) mg/dL Lactic Acid 1.8 (0.5-2.0) mmol/L Calcium 9.9 (8.6-10.3) mg/dL Total Bilirubin 3.00 H (0.2-1.0) mg/dL AST 417 H (13-39) U/L ALT 225 H (7-52) U/L Alkaline Phosphatase 160 H (34-104) U/L C-Reactive Protein 12.50 H (< 5.00) mg/L Total Protein 6.9 (6.4-8.9) g/dL Albumin 4.1 (3.2-5.2) g/dL Globulin 2.8 (2-4) g/dL Albumin/Globulin Ratio 1.5 (1-3) Amylase 115 H (29-103) U/L Lipase 139 H (11.0-82.0) U/L Result Diagrams: 02/22/17 11:00 02/22/17 11:00 Lab Statement: Any lab studies that have been ordered have been reviewed, and results considered in the medical decision making process.
[2017-02-22] MEDS ORDERED: Piperacillin/Tazobac (*) 3.375 GM ADDV.VIAL ONE (12:41)
[2017-02-22] MEDS ORDERED: NS 0.9% 1000 ML* 1,000 ML IV SCH ×2 (12:45→13:23)
[2017-02-22] MEDS ORDERED: Zosyn per Pharmacy* NOTE FOLLOW UP SCH (13:00)
[2017-02-22 13:29] LABS: HDL Cholesterol 61.7 mg/dL
[2017-02-22] MEDS ORDERED: Iodixanol* (CONTRAST) 320 MG/ML 100 ML SDV IV ONE (13:53)
--- NOTE | 2017-02-22 15:52 | RAD ---
CLINICAL HISTORY: Epigastric pain in a patient with a history of pancreatitis. Relevant surgical history includes hysterectomy, cholecystectomy, appendectomy and bowel resection. COMPARISON: Most recent comparison CT examination is dated January 27, 1960 TECHNIQUE: Contrast enhanced CT examination of the abdomen and pelvis from the lung bases through the initial tuberosities. The patient received 57 mL Visipaque 320 intravenously prior to imaging.The patient received oral contrast as well prior to imaging. FINDINGS: VISUALIZED LUNG BASES: Again seen is a small defect at the posterior right hemidiaphragm allowing a small amount of peritoneal fat to herniate superiorly. Otherwise the lung bases are grossly clear and there are no large pleural effusion. ABDOMEN AND PELVIS: Similar the prior CT examination there is mild prominence of the intrahepatic biliary ducts. The common bile duct measures up to 6 mm in diameter. The liver is homogenous in attenuation and the surface is smooth. Similar to the prior CT examination the pancreatic body is mildly heterogeneous, partially exhibiting fatty replacement. There is no definite stranding of the peripancreatic fat. There is no drainable fluid collection. The spleen and adrenal glands are grossly normal in appearance. The gallbladder is surgically absent. The left kidney is normal in appearance without focal mass, calcification or signs of hydronephrosis. At a right lower pole calyx there is hyperdense material measuring up to 1.8 cm in length not seen on the previous CT examination. Likely this represents early excretion of contrast as opposed to a large stone, but the latter is not totally excluded. There is no right hydronephrosis. Fluid density cysts are noted in the bilateral kidneys. The oral contrast has progressed as far as the patient's ileostomy. Contrast is seen filling the right abdominal ostomy bag. There is no gross retroperitoneal or mesenteric lymphadenopathy. The uterus is surgically absent. The coarsely calcified abdominal aorta and iliac arteries are normal in course and diameter. Coarse atherosclerotic calcification continues into the bilateral iliac arteries. There is coarse calcification at the origin of the celiac trunk and superior mesenteric artery. Degenerative changes include multilevel loss of intervertebral disc height involving the lower thoracic and lumbar spine. There is stable grade 1 anterolisthesis of L4 over L5 similar appearance to the prior CT examination. There are no sinister bone lesions. IMPRESSION: 1. No definite CT signs of acute pancreatitis. 2. Extensive chronic, degenerative and iatrogenic findings described in the body the report.
--- NOTE | 2017-02-22 16:42 | HP ---
CC: Dr. Arteaga; Dr. Braun* HISTORY AND PHYSICAL: DATE OF ADMISSION: 02/22/17 PRIMARY CARE PROVIDER: Dr. Rocio Arteaga. CHIEF COMPLAINT: Abdominal pain. HISTORY OF PRESENT ILLNESS: Ms. Vanessa Martin is an 86-year-old female with history of ulcerative colitis and recurrent pancreatitis, who presents complaining of "pancreatitis pain." The patient stated that a sudden-onset of right upper quadrant abdominal pain occurred in the middle of the night. She vomited once. She is currently pain free after a dose of morphine in the emergency department. She has elevation of liver function tests as well as leukocytosis. She also has a temperature of 99.3. She is going to be admitted with the diagnosis of possible cholangitis. Her amylase and lipase are chronically elevated, but today are more so than before. PAST MEDICAL HISTORY: 1. History of recurrent chronic pancreatitis and pancreatic insufficiency, on Creon. 2. History of ulcerative colitis, status post colectomy and ileostomy over 30 years ago. 3. Hypertension. 4. COPD, on oxygen 2 L. 5. Hyperlipidemia. 6. Gastroesophageal reflux disease. 7. Nephrolithiasis. 8. History of urinary incontinence with rectocele and cystocele, status post mesh placement. 9. History of osteoarthritis. 10. History of osteopenia. PAST SURGICAL HISTORY: 1. Cataract surgery. 2. History of cholecystectomy. 3. Appendectomy. 4. Oophorectomy. 5. Hysterectomy. 6. Adenoidectomy. 7. Tonsillectomy. 8. History of mesh placement for urinary incontinence. 9. History of total colectomy and ileostomy as mentioned above. MEDICATIONS: At home, include: 1. Pancrelipase 12,000 units 3 times a day with meals. 2. Flovent 2 puffs b.i.d. 3. Aspirin 81 mg daily. 4. Albuterol 2 puffs every 4 hours p.r.n. 5. The patient also is on oxygen continuously at 2 L. ALLERGIES: Include COLLAGEN, LEVAQUIN, and ESTROGEN. FAMILY HISTORY: Positive for father with pancreatic cancer. SOCIAL HISTORY: The patient denies any current tobacco use, but she has a history of [id number] smoking in the past. She currently lives alone in her house. Her daughter, Kimi Smith, would be the surrogate decision maker. REVIEW OF SYSTEMS: Please see the history of present illness. The patient stated that she uses her inhalers and occasionally she wheezes, but her breathing had been at baseline. She was last hospitalized at the end of 2016 for COPD exacerbation. The patient also has a history of recurrent problems with abdominal pain and recurrent pancreatitis. Her stoma output had been unchanged. Currently, she denies abdominal pain, although the pain that she came in to the hospital with was sharp, localized to the right upper quadrant and lasted a couple of hours prior to her presentation. She also stated that she had chills and rigors at night today. She vomited once as mentioned above. All of the remaining 12 systems were reviewed with the patient and were otherwise negative. PHYSICAL EXAMINATION GENERAL: The patient is a very pleasant 86-year-old female, who is in no acute distress, alert, awake, and oriented x3. VITAL SIGNS: Blood pressure 118/51, heart rate of 94 and regular, respiratory rate 18, oxygen saturation 96% on 2 L oxygen nasal cannula, temperature of 97.7. HEENT: Head: Atraumatic, normocephalic. Eyes: Pupils are equal and reactive to light and accommodation. Oropharynx clear. Mucosa moist. NECK: Supple. No JVD. No bruits bilaterally. RESPIRATORY: Scant bilateral wheezes, otherwise clear. CARDIOVASCULAR: Regular rate and rhythm. No murmur. ABDOMEN: Soft and nontender. Bowel sounds present in all 4 quadrants with ileostomy bag present in the right side of the abdomen with liquid stool in place. EXTREMITIES: There is no edema. Pulses +2 bilaterally. No clubbing or cyanosis. NEURO: Speech is clear. Cranial nerves II through XII grossly intact. Motor strength is 5/5 bilaterally. PSYCHIATRIC: Oriented x3 with no evidence of anxiety or depression. SKIN: On evaluation of the skin, no ecchymotic areas or rashes noted. DIAGNOSTIC STUDIES/LAB DATA: White blood cell count was 17.3, hemoglobin of 11.7, hematocrit of 34, and platelets of 447. Sodium was 138, potassium 4.0, chloride 105, carbon dioxide 23, BUN 16, and creatinine 1.03. Liver function tests show bilirubin of 3, AST of , ALT 226, alkaline phosphatase of 160. C-reactive protein of 12. Amylase of 115, lipase of 139. CT of the abdomen and pelvis as well as MRCP is pending at the time of dictation. ASSESSMENT AND PLAN: 1. Abdominal pain in right upper quadrant in a patient with history of recurrent pancreatitis, status post cholecystectomy. The patient's pain currently has resolved after a dose of morphine in the emergency department. Her laboratory values are indicating possibility of cholangitis and possibility of common bile duct stone. I discussed the case briefly with Dr. Braun. At this point, we will await CT of the abdomen and pelvis result as well as MRCP. Dr. Braun will see the patient in the morning. I will place the patient on Zosyn, clear liquid diet, and intravenous hydration. 2. In regards to the patient's chronic obstructive pulmonary disease, which is oxygen dependent, the patient is going to be placed on DuoNeb on a p.r.n. basis as well as Dulera to substitute Flovent as this is not on formulary. I will also continue on albuterol on a p.r.n. basis. The patient once again is on oxygen at 2 L at home. 3. For DVT prophylaxis, the patient is going to be placed on heparin subcutaneously. 4. The patient's code status is full and her surrogate is her daughter as mentioned above. TIME SPENT: Approximately 65 minutes was spent on admission of this patient, more than half that time was spent [id number] with the patient during the interview and physical exam. [id number]/[facility] #: [id number]
[2017-02-22] MEDS: ZOSYN 3.375 GM Q8H per EXTENDED INFUSION IVPB SCH ×2 (17:16)
[2017-02-22 17:41] LABS: Urine Bacteria Absent (Absent); Urine Bilirubin Negative (Negative); Urine Glucose Negative (Negative); Urine Nitrite Negative (Negative)
[2017-02-22] MEDS: Albuterol HFA INHALER* 8 gm MDI INH PRN (18:11)
[2017-02-22] MEDS: Albuterol/Ipratropium NEB.SOL* Albuterol 2.5 MG/Ipratropium 0.5 MG 3 ML INH PRN (18:53)
[2017-02-22] MEDS ORDERED: Albuterol/Ipratropium NEB.SOL* Albuterol 2.5 MG/Ipratropium 0.5 MG 3 ML INH SCH (19:00)
[2017-02-22] MEDS: Mometasone/Formoter 200/5 MDI INH SCH (20:44)
[2017-02-23] MEDS: ZOSYN 3.375 GM Q8H per EXTENDED INFUSION IVPB SCH ×6 (01:02→17:02)
[2017-02-23] MEDS: Albuterol HFA INHALER* 8 gm MDI INH PRN ×2 (06:03→20:23)
[2017-02-23 06:18] LABS: Hematocrit 28 % (35-47); Hemoglobin 9.2 g/dl (12.0-16.0); Mean Corpuscular HGB Conc 33 g/dl (31-36); Mean Corpuscular Hemoglobin 31 pg (27-31); Mean Corpuscular Volume 92 fL (80-97); Mean Platelet Volume 7 um3 (7.4-10.4); Red Blood Count 2.99 10^6/ul (4.0-5.4); Red Cell Distribution Width 15 % (10.5-15); White Blood Count 17.7 10^3/ul (3.5-10.8)
[2017-02-23 06:33] LABS: Albumin 3.3 g/dL (3.2-5.2); BUN/Creatinine Ratio 13.3 (8-20); Calcium 8.3 mg/dL (8.6-10.3); EGFR African American 58.7 (>60); EGFR Non-African American 45.7 (>60); Globulin 2.1 g/dL (2-4); Potassium 3.5 mmol/L (3.5-5.0); Total Bilirubin 4.8 mg/dL (0.2-1.0); Total Protein 5.4 g/dL (6.4-8.9)
[2017-02-23] MEDS: Acetaminophen TAB* 325 MG PO PRN ×2 (06:47→17:06)
[2017-02-23] MEDS: Mometasone/Formoter 200/5 MDI INH SCH ×2 (07:45→20:23)
--- NOTE | 2017-02-23 11:51 | PN ---
Subjective Date of Service: 02/23/17 Interval History: pt has had no abd pain since admission Objective Active Medications: Acetaminophen (Tylenol Tab*) 650 mg PO Q4H PRN PRN Reason: FEVER/HEADACHE Last Admin: 02/23/17 06:47 Dose: 650 mg Albuterol (Ventolin Hfa Inhaler*) 2 puff INH Q4H PRN PRN Reason: SOB/WHEEZING Last Admin: 02/23/17 06:03 Dose: 2 puff Albuterol/Ipratropium (Duoneb (Albuterol 2.5 Mg/Ipratropium 0.5 Mg)) 1 neb INH Q4H PRN PRN Reason: SOB/WHEEZING Last Admin: 02/22/17 18:53 Dose: 1 neb Piperacillin Sod/Tazobactam (Sod 3.375 gm/ Sodium Chloride) 100 mls @ 25 mls/ hr IVPB Q8H OLI Last Admin: 02/23/17 08:15 Dose: 25 mls/hr Mometasone Furoate/Formoterol Fumar (Dulera 200/5 Mdi*) 2 puff INH BID OLI Last Admin: 02/23/17 07:45 Dose: 2 puff Pharmacy Consult (Zosyn Per Pharmacy*) 1 note FOLLOW UP .ZOSYN PER PHARMACY [facility] Vital Signs 02/22/17 02/22/17 02/22/17 12:47 13:00 13:13 Temperature Pulse Rate 95 94 91 Respiratory 18 Rate Blood Pressure 118/51 (mmHg) O2 Sat by Pulse 92 96 96 Oximetry 02/22/17 02/22/17 02/22/17 13:44 13:49 14:25 Temperature 98.2 F 98.2 F Pulse Rate 88 88 Respiratory 20 20 20 Rate Blood Pressure 125/54 125/54 (mmHg) O2 Sat by Pulse 98 98 Oximetry 02/22/17 02/22/17 02/22/17 15:35 15:43 19:50 Temperature 98.4 F 98.2 F Pulse Rate 83 85 Respiratory 18 20 14 Rate Blood Pressure 118/41 110/57 (mmHg) O2 Sat by Pulse 99 98 Oximetry 02/22/17 02/22/17 02/23/17 20:24 23:46 03:21 Temperature 97.7 F 98.0 F Pulse Rate 70 64 Respiratory 20 16 16 Rate Blood Pressure 102/41 109/46 (mmHg) O2 Sat by Pulse 100 100 Oximetry 02/23/17 02/23/17 02/23/17 06:05 07:22 08:00 Temperature 98.1 F Pulse Rate 68 Respiratory 16 16 16 Rate Blood Pressure 102/50 (mmHg) O2 Sat by Pulse 99 99 Oximetry Oxygen Devices in Use Now: Nasal Cannula - at 2 l Appearance: 86 yo f in nAD, aAOx3 Eyes: PERRLA, - - mild icterus noted Ears/Nose/Mouth/Throat: NL Teeth, Lips, Gums, Mucous Membranes Moist Neck: NL Appearance and Movements; NL JVP, Trachea Midline Respiratory: Symmetrical Chest Expansion and Respiratory Effort, - - scant b/l mid lung wheezes Cardiovascular: NL Sounds; No Murmurs; No JVD, RRR Abdominal: NL Sounds; No Tenderness; No Distention, No Hepatosplenomegaly Lymphatic: No Cervical Adenopathy Extremities: No Edema, No Clubbing, Cyanosis Skin: No Rash or Ulcers, No Nodules or Sclerosis Neurological: Alert and Oriented x 3, NL Muscle Strength and Tone Result Diagrams: 02/23/17 06:02 02/23/17 06:02 Additional Lab and Data: Lab Results 02/22/17 02/22/17 02/22/17 Range/Units 11:00 11:00 11:00 WBC 17.3 H (3.5-10.8) 10^3/ul RBC 3.71 L (4.0-5.4) 10^6/ul Hgb 11.7 L (12.0-16.0) g/dl Hct 34 L (35-47) % MCV 90 (80-97) fL MCH 32 H (27-31) pg MCHC 35 (31-36) g/dl RDW 14 (10.5-15) % Plt Count 447 (150-450) 10^3/ul MPV 7 L (7.4-10.4) um3 Neut % (Auto) 95.2 H (38-83) % Lymph % (Auto) 2.8 L (25-47) % [place] % (Auto) 1.1 (1-9) % Eos % (Auto) 0.7 (0-6) % Baso % (Auto) 0.2 (0-2) % Absolute Neuts (auto) 16.5 H (1.5-7.7) 10^3/ul Absolute Lymphs (auto) 0.5 L (1.0-4.8) 10^3/ul Absolute Monos (auto) 0.2 (0-0.8) 10^3/ul Absolute Eos (auto) 0.1 (0-0.6) 10^3/ul Absolute Basos (auto) 0 (0-0.2) 10^3/ul Absolute Nucleated RBC 0 10^3/ul Nucleated RBC % 0 Sodium 138 (133-145) mmol/L Potassium 4.0 (3.5-5.0) mmol/L Chloride 105 (101-111) mmol/L Carbon Dioxide 23 (22-32) mmol/L Anion Gap 10 (2-11) mmol/L BUN 16 (6-24) mg/dL Creatinine 1.03 H (0.51-0.95) mg/dL Est GFR ( Amer) 65.3 (>60) Est GFR (Non-Af Amer) 50.8 (>60) BUN/Creatinine Ratio 15.5 (8-20) Glucose 110 H (70-100) mg/dL Lactic Acid 1.8 (0.5-2.0) mmol/L Calcium 9.9 (8.6-10.3) mg/dL Total Bilirubin 3.00 H (0.2-1.0) mg/dL AST 417 H (13-39) U/L ALT 225 H (7-52) U/L Alkaline Phosphatase 160 H (34-104) U/L C-Reactive Protein 12.50 H (< 5.00) mg/L Total Protein 6.9 (6.4-8.9) g/dL Albumin 4.1 (3.2-5.2) g/dL Globulin 2.8 (2-4) g/dL Albumin/Globulin Ratio 1.5 (1-3) Amylase 115 H (29-103) U/L Lipase 139 H (11.0-82.0) U/L Assess/Plan/Problems-Billing Assessment: 86 yo F with h/o COPD (02 dependent), recurrent pancreatitis and pancreatic insufficiency presents with RUQ abd pain and chills - Patient Problems (1) Pancreatitis, acute Current Visit: No Comment: Acute on chronic. Pain and nausea have resolved; lipase back to normal. Continue Creon. (2) LFT elevation Comment: suspect acute cholangitis Pain resolved, but bili is still increasing. Dr. Braun will see pt in consult Plan to brandt Whitt MRCP in aM, advance diet for now. (3) COPD (chronic obstructive pulmonary disease) Comment: Continue inhalers/nebs. not in exacerbation (4) Normocytic anemia Comment: suspect hemodilution, but will check stool guaiac (5) Elevated creatine kinase Comment: Pt appears to have chronic creat elevation. suspect CKD stage 2 creat is at baseline (6) DVT prophylaxis Comment: Continue HSQ Status and Disposition: inpatient.
[2017-02-23] MEDS: Pancrelipase CAP* 5,000 UNITS CAP PO SCH ×2 (12:48→17:02)
[2017-02-23] MEDS: Heparin VIAL(*) 5000 UNITS/ML VIAL (FIVE THOUSAND) SUBCUT SCH ×2 (14:52→22:35)
--- NOTE | 2017-02-23 20:49 | CONS ---
GASTROENTEROLOGY CONSULT: DATE: 02/23/17 CONSULTING PHYSICIANS: Rocio Arteaga, Christy Danielle. REASON FOR CONSULTATION: Upper abdominal pain and cholestatic liver function tests. HISTORY: This 86-year-old woman status post cholecystectomy 34 years ago, who is said to have chronic pancreatitis, on Creon for a number of years, comes in with abrupt right upper quadrant pain. Her LFTs are off and she has been placed empirically on Zosyn. The pain came on 36 hours ago in the middle of the night, but she did not let her daughter Debra know until yesterday midmorning. She was brought to the emergency room and was found to be afebrile, though her white count was 17,000 and with elevated LFTs, a clinical diagnosis of cholangitis was made. She was started on Zosyn and admitted. At this time, she actually feels much better and says the pain has gone. The white count is still up; however, and she is still afebrile. The history is very sketchy as she does not really remember much of anything about past medical events and her daughters say that until their father 2 years ago, he assisted in all medical care and they are only sporadically aware of the details. PAST MEDICAL HISTORY: 1. COPD. 2. History of ulcerative colitis, status post complete colectomy in the at [facility]. 3. Gastroesophageal reflux - listed, though not brought up by the patient and she takes omeprazole 20 mg as an outpatient. 4. Status post cholecystectomy - about 1979, details unclear. 5. Recurring gallstones - she recalls an endoscopic procedure but not the term ERCP and records are requested. 6. Right oopherectomy - 1947. 7. Appendectomy, 1947. 8. Complete hysterectomy, late . 9. Tonsillectomy and adenoidectomy. 10. Bladder sling approximately in 1989. 11. History of renal stones - removed via cystoscopy a number of times. 12. Dyslipidemia. 13. History of acute on chronic pancreatitis, frequent lipase elevations from May 2012 through present, great fluctuations. FAMILY HISTORY: Her mother had pancreatic cancer in her mid to late 80s. SOCIAL HISTORY: She was 2 years ago and had 7 children before age 30. Her daughter Kimi lives within a half a mile and mows her lawn. Another daughter Kimi lives nearby. There are 4 daughters and 3 sons. REVIEW OF SYSTEMS: She quit smoking 20 years ago after 80 pack years. No history of seizure, CVA, TIA, RI, arrhythmias, syncope, pacemaker placement, hepatitis, overt jaundice, GI bleeding, psoriasis, MS, falls, or fractures. EXAM: She is an elderly woman, pleasant, attentive, and alert; in no distress at this time, saying her abdominal pain is gone. She is afebrile at 98.1, pulse 68. HEENT exam shows no icterus. She has no adenopathy. Lungs showed diminished breath sounds but are equal. Breasts without masses. The abdomen is symmetric with multiple well-healed scars and there is a right lower quadrant ileostomy. The abdomen is soft and without any tenderness. Rectal deferred. Extremities: Show no edema and are symmetric. There is no deformity. Neurologic: Shows normal cranial nerves and alertness. She is a poor historian based on memory, though she can answer simple short-term symptomatic questions. All 4 extremities move equally. LABS: This morning, white count 17.7, hemoglobin 9.2, hematocrit 28, MCV 92. Creatinine 1.13, BUN 15, ALT 182, alk phos 118, bilirubin 4.8 up from 3.0, albumin 3.3. IMPRESSION: This 86-year-old woman with very complex and detailed past medical history, presents with abrupt upper abdominal pain that has now disappeared. This will be most compatible with passage of a common duct stone though it may have bounced back up into the larger upper channel of the common duct. Antibiotics should be continued and an MRCP done as well as getting old records from [facility], where it sounds like she had an ERCP that no one recalls with any specificity. ERCP in her situation will be certainly higher risk than average and the details were discussed. [id number] #: [id number] [facility]ITAL[facility]an[facility]
[2017-02-24] MEDS: ZOSYN 3.375 GM Q8H per EXTENDED INFUSION IVPB SCH ×6 (01:20→17:49)
[2017-02-24] MEDS: Heparin VIAL(*) 5000 UNITS/ML VIAL (FIVE THOUSAND) SUBCUT SCH ×3 (05:48→21:38)
[2017-02-24 06:33] LABS: Hematocrit 27 % (35-47); Hemoglobin 9.2 g/dl (12.0-16.0); Mean Corpuscular HGB Conc 34 g/dl (31-36); Mean Corpuscular Hemoglobin 31 pg (27-31); Mean Corpuscular Volume 91 fL (80-97); Mean Platelet Volume 8 um3 (7.4-10.4); Red Blood Count 2.98 10^6/ul (4.0-5.4); Red Cell Distribution Width 15 % (10.5-15)
[2017-02-24 06:56] LABS: Albumin 3.3 g/dL (3.2-5.2); BUN/Creatinine Ratio 12.3 (8-20); Calcium 8.4 mg/dL (8.6-10.3); EGFR African American 63.2 (>60); EGFR Non-African American 49.2 (>60); Globulin 2.3 g/dL (2-4); Potassium 3.4 mmol/L (3.5-5.0); Total Bilirubin 1.3 mg/dL (0.2-1.0); Total Protein 5.6 g/dL (6.4-8.9)
[2017-02-24] MEDS: Albuterol/Ipratropium NEB.SOL* Albuterol 2.5 MG/Ipratropium 0.5 MG 3 ML INH PRN (07:35)
[2017-02-24] MEDS: Pancrelipase CAP* 5,000 UNITS CAP PO SCH ×3 (07:39→17:47)
[2017-02-24] MEDS: Aspirin EC Low Dose* 81 MG TAB.EC PO SCH (07:40)
[2017-02-24] MEDS: Omeprazole CAP* 20 MG PO SCH (07:40)
[2017-02-24] MEDS: Valsartan TAB* 80 MG PO SCH (07:40)
[2017-02-24] MEDS: Mometasone/Formoter 200/5 MDI INH SCH ×2 (07:41→20:52)
[2017-02-24] MEDS ORDERED: KCL 20 MEQ/100 ML IVPREMIX* 20 MEQ/100 ML BAG IV ONE (08:30)
--- NOTE | 2017-02-24 11:46 | RAD ---
Indication: Evaluate for common duct stone. Image sequences: Axial T2, coronal T2, MRCP images of the biliary system was performed. The patient is status post cholecystectomy. There are innumerable filling defects present in the common bile duct, common hepatic duct consistent with multiple common duct calculi. Common duct measures up to 14 mm. The left and right hepatic ducts do not appear to be dilated. Renal cysts are noted. Small bilateral pleural effusions are noted. IMPRESSION: There are innumerable filling defects in the common bile duct, common hepatic duct consistent with common duct calculi.
--- NOTE | 2017-02-24 16:39 | PN ---
Subjective Date of Service: 02/24/17 Interval History: Pt feels well, denies abd pain Objective Active Medications: Acetaminophen (Tylenol Tab*) 650 mg PO Q4H PRN PRN Reason: FEVER/HEADACHE Last Admin: 02/23/17 17:06 Dose: 650 mg Albuterol (Ventolin Hfa Inhaler*) 2 puff INH Q4H PRN PRN Reason: SOB/WHEEZING Last Admin: 02/23/17 20:23 Dose: 2 puff Albuterol/Ipratropium (Duoneb (Albuterol 2.5 Mg/Ipratropium 0.5 Mg)) 1 neb INH Q4H PRN PRN Reason: SOB/WHEEZING Last Admin: 02/24/17 07:35 Dose: 1 neb Aspirin (Aspirin Ec Low Dose*) 81 mg PO DAILY [facility] Last Admin: 02/24/17 07:40 Dose: 81 mg Heparin Sodium (Porcine) (Heparin Vial(*)) 5,000 units SUBCUT Q8HR [facility] Last Admin: 02/24/17 14:53 Dose: 5,000 units Piperacillin Sod/Tazobactam (Sod 3.375 gm/ Sodium Chloride) 100 mls @ 25 mls/ hr IVPB Q8H [facility] Last Admin: 02/24/17 08:49 Dose: 200 mls/hr Mometasone Furoate/Formoterol Fumar (Dulera 200/5 Mdi*) 2 puff INH BID [facility] Last Admin: 02/24/17 07:41 Dose: 2 puff Omeprazole (Prilosec Cap*) 20 mg PO DAILY [facility] Last Admin: 02/24/17 07:40 Dose: 20 mg Pancrelipase (Zenpep Delayed Cap*) 10,000 units PO TID WITH MEALS [facility] Last Admin: 02/24/17 12:00 Dose: 10,000 units Pharmacy Consult (Zosyn Per Pharmacy*) 1 note FOLLOW UP .ZOSYN PER PHARMACY [facility] Valsartan (Diovan Tab*) 80 mg PO DAILY [facility] Last Admin: 02/24/17 07:40 Dose: 80 mg Vital Signs 02/23/17 02/23/17 02/23/17 19:44 20:00 20:25 Temperature 98.7 F Pulse Rate 68 68 Respiratory 16 18 20 Rate Blood Pressure 117/36 (mmHg) O2 Sat by Pulse 99 97 Oximetry 02/23/17 02/24/17 02/24/17 23:55 03:52 07:40 Temperature 98.2 F 98.0 F Pulse Rate 68 67 Respiratory 16 16 22 Rate Blood Pressure 127/42 137/42 (mmHg) O2 Sat by Pulse 100 100 Oximetry 02/24/17 02/24/17 07:50 10:59 Temperature 98.0 F Pulse Rate 71 80 Respiratory 18 18 Rate Blood Pressure 139/57 (mmHg) O2 Sat by Pulse 99 99 Oximetry Oxygen Devices in Use Now: Nasal Cannula - 2l Appearance: 86 yo F in nAD, aAOx3 Eyes: No Scleral Icterus, PERRLA Ears/Nose/Mouth/Throat: NL Teeth, Lips, Gums, Mucous Membranes Moist Neck: NL Appearance and Movements; NL JVP, Trachea Midline Respiratory: Symmetrical Chest Expansion and Respiratory Effort, Clear to Auscultation Cardiovascular: NL Sounds; No Murmurs; No JVD, RRR Abdominal: NL Sounds; No Tenderness; No Distention, No Hepatosplenomegaly Lymphatic: No Cervical Adenopathy Extremities: No Edema, No Clubbing, Cyanosis Skin: No Rash or Ulcers, No Nodules or Sclerosis Neurological: Alert and Oriented x 3, NL Muscle Strength and Tone Result Diagrams: 02/24/17 06:09 02/24/17 06:09 Additional Lab and Data: Lab Results 02/22/17 02/22/17 02/22/17 Range/Units 11:00 11:00 11:00 WBC 17.3 H (3.5-10.8) 10^3/ul RBC 3.71 L (4.0-5.4) 10^6/ul Hgb 11.7 L (12.0-16.0) g/dl Hct 34 L (35-47) % MCV 90 (80-97) fL MCH 32 H (27-31) pg MCHC 35 (31-36) g/dl RDW 14 (10.5-15) % Plt Count 447 (150-450) 10^3/ul MPV 7 L (7.4-10.4) um3 Neut % (Auto) 95.2 H (38-83) % Lymph % (Auto) 2.8 L (25-47) % [place] % (Auto) 1.1 (1-9) % Eos % (Auto) 0.7 (0-6) % Baso % (Auto) 0.2 (0-2) % Absolute Neuts (auto) 16.5 H (1.5-7.7) 10^3/ul Absolute Lymphs (auto) 0.5 L (1.0-4.8) 10^3/ul Absolute Monos (auto) 0.2 (0-0.8) 10^3/ul Absolute Eos (auto) 0.1 (0-0.6) 10^3/ul Absolute Basos (auto) 0 (0-0.2) 10^3/ul Absolute Nucleated RBC 0 10^3/ul Nucleated RBC % 0 Sodium 138 (133-145) mmol/L Potassium 4.0 (3.5-5.0) mmol/L Chloride 105 (101-111) mmol/L Carbon Dioxide 23 (22-32) mmol/L Anion Gap 10 (2-11) mmol/L BUN 16 (6-24) mg/dL Creatinine 1.03 H (0.51-0.95) mg/dL Est GFR ( Amer) 65.3 (>60) Est GFR (Non-Af Amer) 50.8 (>60) BUN/Creatinine Ratio 15.5 (8-20) Glucose 110 H (70-100) mg/dL Lactic Acid 1.8 (0.5-2.0) mmol/L Calcium 9.9 (8.6-10.3) mg/dL Total Bilirubin 3.00 H (0.2-1.0) mg/dL AST 417 H (13-39) U/L ALT 225 H (7-52) U/L Alkaline Phosphatase 160 H (34-104) U/L C-Reactive Protein 12.50 H (< 5.00) mg/L Total Protein 6.9 (6.4-8.9) g/dL Albumin 4.1 (3.2-5.2) g/dL Globulin 2.8 (2-4) g/dL Albumin/Globulin Ratio 1.5 (1-3) Amylase 115 H (29-103) U/L Lipase 139 H (11.0-82.0) U/L Microbiology and Other Data: Microbiology 02/22/17 13:27 Aerobic Blood Culture - Preliminary Blood Venous No Growth Day 2 Anaerobic Blood Culture - Preliminary No Growth Day 2 Blood Culture - Final 02/22/17 13:22 Aerobic Blood Culture - Preliminary Blood Venous No Growth Day 2 Anaerobic Blood Culture - Preliminary No Growth Day 2 Blood Culture - Final 02/22/17 17:23 Urine Culture - Final Urine No Growth (<1,000 CFU/mL) Assess/Plan/Problems-Billing Assessment: 86 yo F with h/o COPD (02 dependent), recurrent pancreatitis and pancreatic insufficiency presents with RUQ abd pain and chills - Patient Problems (1) Pancreatitis, acute Comment: Acute on chronic. Pain and nausea have resolved; lipase back to pt's baseline(usually mildly elevated). Continue Creon. (2) LFT elevation Comment: suspect acute cholangitis Pain resolved, LFT's normalizing D/w Dr. Braun will see pt in AM and discuss ERCP for nect week. Pt would be discharged tomorrow on augmentin 500 BID x 10 days and scheduled for ERCP next Friday with DR. Braun. Plan to cont Peri cathi . MRCP showed CBD at 14 mm and "innumerable" CBD stones (3) COPD (chronic obstructive pulmonary disease) Comment: Continue inhalers/nebs. not in exacerbation (4) Normocytic anemia Comment: suspect hemodilution, but will check stool guaiac (5) Elevated creatine kinase Comment: Pt appears to have chronic creat elevation. suspect CKD stage 2 creat is at baseline (6) DVT prophylaxis Comment: Continue HSQ Status and Disposition: inpatient.Possible d/c home tomorrow
[2017-02-25] MEDS: ZOSYN 3.375 GM Q8H per EXTENDED INFUSION IVPB SCH ×4 (01:11→09:18)
[2017-02-25] MEDS: Albuterol HFA INHALER* 8 gm MDI INH PRN (03:35)
[2017-02-25] MEDS: Albuterol/Ipratropium NEB.SOL* Albuterol 2.5 MG/Ipratropium 0.5 MG 3 ML INH PRN ×2 (03:39→14:25)
[2017-02-25 05:05] LABS: Hematocrit 27 % (35-47); Hemoglobin 9.2 g/dl (12.0-16.0); Mean Corpuscular HGB Conc 35 g/dl (31-36); Mean Corpuscular Hemoglobin 31 pg (27-31); Mean Corpuscular Volume 91 fL (80-97); Mean Platelet Volume 7 um3 (7.4-10.4); Red Blood Count 2.91 10^6/ul (4.0-5.4); Red Cell Distribution Width 15 % (10.5-15); White Blood Count 6.8 10^3/ul (3.5-10.8)
[2017-02-25] MEDS: Heparin VIAL(*) 5000 UNITS/ML VIAL (FIVE THOUSAND) SUBCUT SCH ×2 (05:21→14:14)
[2017-02-25 05:22] LABS: Albumin 3.1 g/dL (3.2-5.2); BUN/Creatinine Ratio 7.4 (8-20); Calcium 8.3 mg/dL (8.6-10.3); EGFR African American 72.6 (>60); EGFR Non-African American 56.5 (>60); Globulin 2.2 g/dL (2-4); Potassium 3.6 mmol/L (3.5-5.0); Total Bilirubin 0.9 mg/dL (0.2-1.0); Total Protein 5.3 g/dL (6.4-8.9)
[2017-02-25] MEDS: Pancrelipase CAP* 5,000 UNITS CAP PO SCH ×2 (07:59→12:38)
[2017-02-25] MEDS: Valsartan TAB* 80 MG PO SCH (09:18)
[2017-02-25] MEDS: Aspirin EC Low Dose* 81 MG TAB.EC PO SCH (09:18)
[2017-02-25] MEDS: Omeprazole CAP* 20 MG PO SCH (09:18)
[2017-02-25] MEDS: Mometasone/Formoter 200/5 MDI INH SCH (09:25)
[2017-02-25 15:30] VITALS: BP 155/60
--- NOTE | 2017-02-26 11:05 | DS ---
DISCHARGE SUMMARY: DATE OF ADMISSION: 02/22/17 DATE OF DISCHARGE: 02/25/17 ADMITTING PROVIDER: Dr. Christy Danielle ATTENDING PHYSICIANS: Dr. Christy Danielle and Cameron Yost MD PRIMARY CARE PROVIDER: Dr. Rocio Arteaga CHIEF COMPLAINT: Abdominal pain. PRINCIPAL DIAGNOSIS: Choledocholithiasis. PAST MEDICAL HISTORY: Chronic pancreatitis and pancreatic insufficiency, on Creon; ulcerative colitis, status post colectomy and ileostomy; hypertension; COPD, currently on home oxygen 2 L; hyperlipidemia; GERD; nephrolithiasis; urinary incontinence with rectocele and cystocele, status post mesh placement; osteoarthritis; osteopenia. HISTORY OF PRESENT ILLNESS AND HOSPITAL COURSE: Mrs. Vanessa Martin is an 86-year- old female with past medical history as above, who presented with "pancreatitis pain." Please see H and P of 02/22/17 for full details. The patient states that she had sudden onset of right upper quadrant abdominal pain recurring in the middle of the night. She vomited once. Pain resolved after a dose of morphine in the emergency department. She was found to have elevated liver function tests as well as leukocytosis and a temperature of 99.3. She was admitted with a presumptive diagnosis of cholangitis. The patient had a CT of the abdomen and pelvis, which showed mild prominence of the intrahepatic biliary ducts. The common bile duct measuring up to 6 mm in diameter. The pancreatic body was mildly heterogeneous, partially filling fatty replacement without definitive stranding of the peripancreatic fat and no drainable fluid collection. Her initial LFTs were significant for a total bilirubin of 3.0, AST of 417, ALT of 225, alk phos of 160. Lipase was 139, amylase 115, total bili 4.8 on hospital day #2 morning labs. Her white count was 17.3 on admission versus 17.7 before falling to 6.8 on day of discharge. The patient was started on Zosyn empirically for cholangitis and evaluated by Dr. Braun of GI on hospital day #2. The patient had MRCP on 02/24/17, which showed innumerable filling defects in the common hepatic duct consistent with common duct calculi. Given the fact that the patient's LFTs were improving, her abdominal pain subsiding, she was afebrile, leukocytosis had resolved and Dr. Braun's availability, he suggested discharge the patient with a course of Augmentin as an outpatient until further ERCP, which was known to be prolonged and complicated given the innumerable stones to be scheduled after he follows up with his office initially on Friday, 10:30, with planned ERCP on Friday, . DISCHARGE MEDICATIONS: Include: 1. Augmentin 500 mg b.i.d. for 10 days. 2. Albuterol inhaler q.4 hours p.r.n. 3. Ventolin HFA inhaler 2 puffs q.6 hours p.r.n. 4. Aspirin 81 mg daily. 5. Symbicort 1 puff inhaled b.i.d. 6. Flovent HFA 220 mcg 2 puffs inhaled b.i.d. 7. Hydrocodone/acetaminophen 5/325 mg p.o. q.6 hours p.r.n. 8. Prilosec 20 mg p.o. daily. 9. Creon 12,000 units p.o. t.i.d. with meals. 10. Valsartan 80 mg p.o. daily. DISCHARGE DIET: Low fat. ACTIVITY LEVEL: Unrestricted. FOLLOWUP: The patient will be seen by Dr. Braun on 03/03/17, to discuss ERCP the following day tentatively 03/04/17, given her continued evidence of choledocholithiasis. The patient was advised to return to the emergency room with resumption of high fevers, abdominal pain, jaundice, lightheadedness, racing heart rate. TIME SPENT: Time spent on discharge, 35 minutes. [id number] #: [id number]
== END 2017-02-25 16:00 | disposition home or self-care (01) | DRG 444 ==
LOC: ED 10:08 → SSU 12:36
PROVIDERS: ADMIT Internal Medicine; ATTEND Internal Medicine
DX: K80.30 Calculus of bile duct with cholangitis, unspecified, without obstruction (principal); K85.90 Acute pancreatitis without necrosis or infection, unspecified; Z99.81 Dependence on supplemental oxygen; J44.9 Chronic obstructive pulmonary disease, unspecified; K86.1 Other chronic pancreatitis; D64.9 Anemia, unspecified; N18.2 Chronic kidney disease, stage 2 (mild); Z93.2 Ileostomy status; I12.9 Hypertensive chronic kidney disease with stage 1 through stage 4 chronic kidney disease, or unspecified chronic kidney disease; E78.5 Hyperlipidemia, unspecified; K21.9 Gastro-esophageal reflux disease without esophagitis; M19.90 Unspecified osteoarthritis, unspecified site; M85.80 Other specified disorders of bone density and structure, unspecified site; Z90.49 Acquired absence of other specified parts of digestive tract; Z79.82 Long term (current) use of aspirin; Z79.899 Other long term (current) drug therapy; Z88.1 Allergy status to other antibiotic agents; Z88.8 Allergy status to other drugs, medicaments and biological substances; Z80.0 Family history of malignant neoplasm of digestive organs; Z87.891 Personal history of nicotine dependence
CPT/HCPCS: 36415; 71020; 74177; 74181; 76376; 80053; 80061; 81003; 81015; 82150; 83605; 83690; 85025; 86140; 87040; 87086; 94640; 94760; A9270-GY; J1644; J2270; J2405; J2543; J3480; Q9967

== ENCOUNTER 2018-07-23 09:51 | Inpatient (IN) | payer MEDICARE ==
--- NOTE | 2018-07-23 10:36 | ED ---
GI/ HPI - HPI Summary HPI Summary: An 88 y/o female accompanied by her daughter presents to [facility] with a chief complaint of vomiting for 10 days. She reports that she hasnt been able to keep much down, but she has been able to drink chicken broth. She reports that she lost 20 pounds, going from 110 to 90 pounds. She also reports dizziness, nausea, and believes she has been having diarrhea. She claims that she has a bag but says that her stool has been loose. At triage she rated her pain as a 910 in severity. She also reports having a bladder infection recently. - History of Current Complaint Chief Complaint: EDNauseaVomitDiarrh Time Seen by Provider: 07/23/18 10:30 Stated Complaint: DIZZY AND NOT EATING PER PT Hx Obtained From: Patient, Family/Hvac Project Engineer Onset/Duration: Started Weeks Ago, Still Present Timing: Constant, Lasting Weeks Severity: Severe Current Severity: Moderate Pain Intensity: 9 - out of 10 Location of Pain: Diffuse Pain Characteristics: Unable to describe Associated Signs and Symptoms: Positive: Dizziness, Nausea, Diarrhea. Negative : Fever - Additional Pertinent History Primary Care Physician: [id number] - Allergy/Home Medications Allergies/Adverse Reactions: Allergies Allergy/AdvReac Type Severity Reaction Status Date / Time collagenase Clostridium Allergy Unknown Verified 07/23/18 09:57 histolyticu Reaction Details Estrogens Allergy Unknown Verified 07/23/18 09:57 Reaction Details levofloxacin [From Levaquin] Allergy Hives Verified 07/23/18 09:57 Home Medications: Home Medications Albuterol HFA INHALER* [Ventolin HFA Inhaler*] 2 puff INH Q4H PRN 07/23/18 [ History Confirmed 07/23/18] Budesonide/Formote 160/4.5(NF) [Symbicort 160/4.5 (NF)] 2 puff INH BID 07/23/18 [History Confirmed 07/23/18] DOXYcycline CAP(*) [DOXYcycline 100MG CAP(*)] 100 mg PO BID 07/23/18 [History Confirmed 07/23/18] Multivitamin [Multiple Vitamins] 1 tab PO DAILY 07/23/18 [History Confirmed ] PMH/Surg Hx/FS Hx/Imm Hx Endocrine/Hematology History: Denies: Hx Anticoagulant Therapy, Hx Diabetes, Hx Systemic Lupus Erythematosus, Hx Thyroid Disease Cardiovascular History: Reports: Hx Hypercholesterolemia, Hx Hypertension - states no longer on meds, Other Cardiovascular Problems/Disorders - hyperlipidemia Denies: Hx Congestive Heart Failure, Hx Pacemaker/ICD Respiratory History: Reports: Hx Asthma, Hx Chronic Obstructive Pulmonary Disease (COPD), Other Respiratory Problems/Disorders - on o2 at 2lpm GI History: Reports: Hx Gall Bladder Disease - was removed, Hx Gastroesophageal Reflux Disease, Hx Ileostomy - Ileostomy, Hx Ulcer, Other GI Disorders - ulcerative colitis, pancreatitis - History: Reports: Hx Kidney Infection, Hx Kidney Stones, Other Problems/ Disorders - nephrolithiasis, rectocele, cystocele Denies: Hx Dialysis, Hx Renal Disease Musculoskeletal History: Reports: Hx Arthritis - osteoarthritis, Hx Back Problems - back pain, Hx Osteoporosis, Other Musculoskeletal History - fx: left wrist and ankle Denies: Hx Rheumatoid Arthritis Sensory History: Reports: Hx Cataracts - bilateral, Hx Contacts or Glasses - glasses, Hx Vision Problem Denies: Hx Hearing Aid Opthamlomology History: Reports: Hx Cataracts - bilateral, Hx Contacts or Glasses - glasses, Hx Vision Problem Neurological History: Reports: Other Neuro Impairments/Disorders - had pinched nerve in right leg- tx and no longer problem Denies: Hx Dementia, Hx Seizures Psychiatric History: Denies: Hx Panic Disorder, Hx Substance Abuse - Cancer History Hx Chemotherapy: No - Surgical History Surgery Procedure, Year, and Place: bilateral cataract extraction, colectomy with ileostomy. cholecystectomy. appendectomy. oophoroectomy. tonsillectomy and adenoidectomy. mesh placement for urinary incontinence. total colectomy and ileostomy - 30 yrs ago in [place] Hx Anesthesia Reactions: No - Immunization History Date of Tetanus Vaccine: unknown Date of Influenza Vaccine: 2013 Infectious Disease History: No Infectious Disease History: Denies: Hx Clostridium Difficile, Hx Hepatitis, Hx Human Immunodeficiency Virus (HIV), Hx of Known/Suspected MRSA, Hx Shingles, Hx Tuberculosis, Hx Known/ Suspected VRE, Hx Known/Suspected VRSA, Traveled Outside the [place] in Last 30 Days - Family History Known Family History: Positive: Other Negative: Cardiac Disease, Diabetes Family History: Father -- pancreatic CA. - Social History Alcohol Use: None Hx Substance Use: No Substance Use Type: Reports: None Hx Tobacco Use: Yes Smoking Status (MU): Former Smoker Amount Used/How Often: 1 pack every 3 days for 30 years Review of Systems Negative: Fever Positive: Vomiting, Diarrhea, Nausea Neurological: Other - positive: dizziness All Other Systems Reviewed And Are Negative: Yes Physical Exam - Summary Physical Exam Summary: Appearance: The patient is well-nourished in no acute distress and in no acute pain. Skin: The skin is tents a little. HEENT: The head is normocephalic and atraumatic. The pupils are equal and reactive. The conjunctivae are clear and without drainage. Nares are patent and without drainage. Mouth reveals moist mucous membranes and the throat is without erythema and exudate. The external ears are intact. The ear canals are patent and without drainage. The tympanic membranes are intact. Neck: The neck is supple with full range of motion and non-tender. There are no carotid bruits. There is no neck vein distension. Respiratory: Chest is non-tender. Lungs are clear to auscultation and breath sounds are symmetrical and equal. Cardiovascular: Heart is regular rate and rhythm. There is no murmur or rub auscultated. There is no peripheral edema and pulses are symmetrical and equal. Abdomen: The abdomen is soft and non-tender. There are normal bowel sounds heard in all four quadrants and there is no organomegaly palpated. Musculoskeletal: There is no back tenderness noted. Extremities are non-tender with full range of motion. There is good capillary refill. There is no peripheral edema or calf tenderness elicited. Neurological: Patient is alert and oriented to person, place and time. The patient has symmetrical motor strength in all four extremities. Cranial nerves are grossly intact. Deep tendon reflexes are symmetrical and equal in all four extremities. Psychiatric: The patient has an appropriate affect and does not exhibit any anxiety or depression. Triage Information Reviewed: Yes Vital Signs On Initial Exam: Initial Vitals Temp Pulse Resp BP Pulse Ox 97.2 F 104 18 93/78 99 07/23/18 09:57 07/23/18 09:57 07/23/18 09:57 07/23/18 09:57 07/23/18 09:57 Vital Signs Reviewed: Yes Diagnostics - Vital Signs Vital Signs Temp Pulse Resp BP Pulse Ox 07/23/18 09:57 97.2 F 104 18 93/78 99 - Laboratory Result Diagrams: 07/24/18 06:55 07/24/18 06:55 Lab Statement: Any lab studies that have been ordered have been reviewed, and results considered in the medical decision making process. Re-Evaluation - Re-Evaluation First Eval Re-Evaluation Time: 12:20 Change: Unchanged Comment: Pt still feels the same, will order more IV fluids. Second Eval Re-Evaluation Time: 14:36 Change: Unchanged Comment: Discussed results and plan with patient's family. GIGU Course/Dx - Course Course Of Treatment: Ms. Martin presented with a concern for nausea vomiting and diarrhea that is lasted 10 days. She minimized any abdominal pain. She has an ostomy but feels that the contents of been looser than normal. She was nontoxic in appearance but looked dehydrated and her labs confirmed that she had some severe dehydration. She was hydrated here in the emergency department and the hospitalists were asked to evaluate her for slow rehydration as well as possible infection given that she had a leukocytosis of about 20. - Diagnoses Provider Diagnoses: Severe dehydration, Leukocytosis Discharge - Sign-Out/Discharge Documenting (check all that apply): Patient Departure - admit Patient Received Moderate/Deep Sedation with Procedure: No - Discharge Plan Condition: Fair Disposition: ADMITTED TO [facility] - Billing Disposition and Condition Condition: FAIR Disposition: Admitted to [facility] - Attestation Statements Document Initiated by Scribe: Yes Documenting Scribe: Marco Parsons Provider For Whom Jez is Documenting (Include Credential): Johan Chavez MD Scribe Attestation: Marco Troy, scribed for Johan Chavez MD on 07/24/18 at 1452. Scribe Documentation Reviewed: Yes Provider Attestation: The documentation as recorded by the Marco greenberg accurately reflects the service I personally performed and the decisions made by me, Johan Chavez MD Status of Scribe Document: Viewed
[2018-07-23] MEDS ORDERED: NS 0.9% 1000 ML** 1,000 ML IV ONE ×2 (10:38→14:24)
[2018-07-23 11:14] LABS: ABS Basophils 0.2 10^3/ul (0-0.2); ABS Eosinophils 0.2 10^3/ul (0-0.6); ABS Lymphocytes 1.4 10^3/ul (1.0-4.8); ABS Monocytes 1.1 10^3/ul (0-0.8); ABS Neutrophils 17.1 10^3/ul (1.5-7.7); ABS Nucleated RBC 0 10^3/ul; Eosinophil % 0.9 %; Hematocrit 48 % (33-41); Lymphocyte % 7.1 %; Mean Corpuscular HGB Conc 33 g/dL (31-36); Mean Corpuscular Hemoglobin 30 pg (27-31); Mean Corpuscular Volume 91 fL (80-97); Mean Platelet Volume 8.1 fL (7.4-10.4); Nucleated Red Blood Cells % 0.1; Platelet Count 445 10^3/uL (150-450); Red Blood Count 5.34 10^6 /uL (3.70-4.87); Red Cell Distribution Width 14 % (10.5-15); White Blood Count 19.9 10^3/uL (3.5-10.8)
[2018-07-23 11:27] LABS: Influenza A Molecular NEGATIVE (Negative); Influenza B Molecular NEGATIVE (Negative)
[2018-07-23 11:33] LABS: Albumin 3.7 g/dL (3.2-5.2); Albumin/Globulin Ratio 1.2 (1-3); BUN/Creatinine Ratio 27.6 (8-20); C Reactive Protein 5.05 mg/L (<8.01); Calcium 9.3 mg/dL (8.6-10.3); EGFR African American 29.1 (>60); EGFR Non-African American 24.1 (>60); Potassium 3.8 mmol/L (3.5-5.0); Total Bilirubin 0.5 mg/dL (0.2-1.0); Total Protein 6.7 g/dL (6.4-8.9)
[2018-07-23 12:40] LABS: Urine Appearance Cloudy; Urine Blood 3+ (Negative); Urine Color Yellow; Urine Protein 2+(100 mg/dL) (Negative); Urine Specific Gravity 1.015 (1.010-1.030)
[2018-07-23 12:41] LABS: Urine Bilirubin Negative (Negative); Urine Glucose Negative (Negative); Urine Ketones Negative (Negative); Urine Nitrite Negative (Negative); Urine Urobilinogen Negative (Negative)
[2018-07-23 12:49] LABS: Urine White Blood Cell 3+(>20/hpf) (Absent)
[2018-07-23 12:50] LABS: Urine Bacteria Absent (Absent); Urine Red Blood Cell 2+(6-10/hpf) (Absent)
[2018-07-23 16:09] LABS: Magnesium 2.2 mg/dL (1.9-2.7)
[2018-07-23] MEDS ORDERED: Acetaminophen TAB* 325 MG PO PRN (16:40)
[2018-07-23] MEDS: cefTRIAXone(*) 1 GM in NS 0.9% 50 ML* 50 ML IVPB SCH (17:13)
[2018-07-23] MEDS: NS 0.9% 1000 ML** 1,000 ML IV SCH (19:05)
--- NOTE | 2018-07-23 19:07 | HP ---
CC: Dr. Arteaga * HISTORY AND PHYSICAL: DATE OF ADMISSION: 07/23/18 PROVIDER: Raysa Palacios NP. ATTENDING PROVIDER: Dr. Marian Marie * (DICTATED BY RAYSA PALACIOS NP) PRIMARY CARE PROVIDER: Dr. Rocio Arteaga. CHIEF COMPLAINT: 1. Increased ileostomy output. 2. Vomiting. 3. Decreased appetite x1 week. HISTORY OF PRESENT ILLNESS: Ms. Martin is an 88-year-old female with past medical history significant for ulcerative colitis, status post colectomy with an ileostomy over 30 years ago, history of pancreatitis, hypertension, COPD, hyperlipidemia, acid reflux, nephrolithiasis, osteoarthritis, and osteopenia, who presented to the emergency room with complaints of increased output from her ileostomy x10 days, nausea and vomiting x1 week, and decreased appetite x10 days with an approximate 20- pound weight loss, chills. The patient reports that she was seen by her primary care provider approximately a week ago and was started on doxycycline for urinary tract infection. The patient reports that she continues to have a decreased appetite, unable to eat, and has been vomiting. She reports that she last vomited approximately 3 days ago. She reports that she continues to be nauseated. Due to these concerns, she presented to the emergency room for further evaluation. The patient also reports that she has white patches on her tongue. While in the emergency room, the patient had routine lab work drawn. She was found to have leukocytosis with white cell count of 19.9, absolute neutrophils are 17.1, and monos are 1.1. Her BUN and creatinine were also elevated from baseline at 54 and 1.96 with mildly elevated lipase of 358. Her urine did show 2+ protein, 3+ blood, leukocyte esterase of 3+, wbc's 3+, rbc's were 2+ and it was cloudy. The patient was given IV hydration in the emergency room and upon my evaluation, the patient reports that she was feeling better and is requesting to try some solid foods. PAST MEDICAL HISTORY: Significant for: 1. History of chronic pancreatitis and pancreatic insufficiency. 2. History of ulcerative colitis, status post colectomy with an ileostomy over 30 years ago. 3. Hypertension. 4. COPD. 5. Hyperlipidemia. 6. Acid reflux. 7. Nephrolithiasis. 8. History of urinary incontinence. PAST SURGICAL HISTORY: 1. Cataract surgery. 2. Cholecystectomy. 3. Appendectomy. 4. Oophorectomy. 5. Hysterectomy. 6. Tonsil and adenoids removed. 7. Mesh for urinary incontinence. 8. Ileostomy with colectomy. HOME MEDICATIONS: Include: 1. Flovent 2 puffs b.i.d. 2. Aspirin 81 mg p.o. daily. 3. Albuterol 2 puffs every 4 hours as needed for shortness of breath. 4. Nebulizer albuterol. 5. Multivitamin 1 tablet p.o. daily. ALLERGIES: 1. COLLAGEN. 2. LEVAQUIN. 3. ESTROGEN. FAMILY HISTORY: No reported history of coronary artery disease or diabetes. Father with a history of pancreatic cancer. SOCIAL HISTORY: The patient denies any tobacco use. She quit smoking 30 to 40 years ago. Prior to that, she smoked for approximately 40 years a pack a day. She currently lives alone in her home. Surrogate decision maker in the event she is unable to make her own decisions is her daughter, Kimi Silva. She is a full code. She denies any alcohol or illicit drug use. REVIEW OF SYSTEMS: The patient denies any fever. She does report chills and decreased appetite. Denies any chest pain or edema. Denies any cough, hemoptysis, or shortness of breath. Denies any nausea, vomiting. She does report increased output from her ileostomy. She denies any abdominal pain, hematuria, or dysuria. She does report frequency in small amounts. Denies any weakness or sensory loss. Denies any visual complaints, dysphagia, arthralgias, myalgias, rashes, lesions, psychosis, or anxiety. She does report white patches to her tongue x1 week. PHYSICAL EXAMINATION GENERAL: At this time, Ms. Martin is an 88-year-old female. She is resting comfortably on the stretcher in the emergency room. She is alert and oriented x3. HEENT: Head is atraumatic, normocephalic. Eyes: EOMs are intact. Sclerae anicteric and not pale. Oral mucosa is dry. She does have white patches noted to her tongue. Mucous membranes are dry. No oropharyngeal erythema. NECK: Supple. LUNGS: Clear to auscultation bilaterally. No wheezes, rales, or rhonchi. CARDIAC: S1, S2. Regular rate and rhythm. No murmurs, rubs, or gallops. ABDOMEN: Soft and nontender. Bowel sounds are present x4. MUSCULOSKELETAL: She is able to move all 4 extremities with 5/5 strength. NEUROLOGIC: She is awake, alert, oriented x3. Speech is clear. Thought process is intact. There are no gross focal deficits noted. SKIN: Intact. LABORATORY DATA AND DIAGNOSTIC STUDIES: WBCs were 19.9, RBCs 5.34, hemoglobin 16.0, hematocrit was 48, platelet count was 445. Sodium 137, potassium 3.8, chloride 107, carbon dioxide was 19, anion gap was 11, BUN was 54, creatinine 1.96, glucose was 107. Lactic acid 1.2, calcium 9.3, magnesium 2.2. ASTs were 18, ALTs were 17, alkaline phosphatase was 109. Lipase was 358. Urine was yellow, cloudy; pH was 6; specific gravity of 1.015; urine protein was 2+; urine ketones were negative; blood was 3+; urine nitrites, bilirubin, urobilinogen were all negative; urine leukocyte esterase was 3+; wbc's were 3+; rbc's 2+; bacteria was absent. Influenza A and B were both negative. ASSESSMENT AND PLAN: Ms. Martin is an 88-year-old female with a past medical history significant for hypertension, chronic obstructive pulmonary disease, hyperlipidemia, nephrolithiasis, acid reflux, and chronic ulcerative colitis, status post ileostomy 30 years ago, who presented to the emergency room with high output ileostomy and nausea and vomiting x10 days with approximately 20- pound weight loss. The patient was found to have leukocytosis with white blood cell count of 19.9. Due to these findings, we were asked to see and evaluate her for admission. 1. High output ileostomy. She did have stool cultures and stool for Clostridium difficile, which was negative. I suspect that she does have some mild dehydration, which is contributing to her leukocytosis. She did receive IV bolusing in the emergency room. I will continue her on normal saline at 75 cc per hour overnight. Repeat a CBC and BMP in the a.m. I suspect this could be related to viral illness as well. 2. Thrush. The patient does have oral thrush. I will place her on nystatin swish and swallow. 3. History of chronic obstructive pulmonary disease. She will continue on her home inhalers, Flovent and albuterol, and she can have albuterol nebulizers as needed for shortness of breath and wheezing. 4. History of chronic pancreatitis. The patient has no abdominal pain at this time. She does have a mildly elevated lipase. I will repeat a lipase in the morning, but she has no clinical symptomatology to associate with pancreatitis at this time. 5. Leukocytosis. The patient does have leukocytosis. I think that this could possibly be elevated related to dehydration and possible underlying urinary tract infection. The patient was recently treated for urinary tract infection as an outpatient through her primary care provider. I am attempting to get urine culture results from her primary care's office as the patient's previous urine culture here showed Proteus mirabilis, which was resistant to tetracycline and the patient was placed on doxycycline. At this time, I will give her 1 g of ceftriaxone and her urine culture is currently pending. 6. Elevated BUN and creatinine. I suspect this is related to dehydration. The patient did receive IV bolusing in the emergency room. We will continue IV fluids overnight and repeat a BMP in the a.m. 7. DVT prophylaxis. I will place her on heparin subcu q.12 hours as she has scored a 3 on the DVT risk assessment giving her high risk. 8. FEN. She can have a regular diet. 9. Code status. She is a full code. TIME SPENT: Time spent on this admission was 60 minutes; greater than half that time was spent [id number] with the patient obtaining my history and physical; the other half of the time was spent going over my plan of care and implementing my plan of care. I have discussed this with my attending, Dr. Marian Marie; she is in agreement with my plan. RAYSA PALACIOS, PHYSICAL EDUCATION DEPARTMENT CHAIR [id number]/[facility] #: [id number] SHAMEKA
[2018-07-23] MEDS: Nystatin SUSPENSION* 100000 UNITS/ML 5 ML UDC PO SCH (21:16)
[2018-07-23] MEDS: Heparin VIAL(*) 5000 UNITS/ML VIAL (FIVE THOUSAND) SUBCUT SCH (21:16)
[2018-07-24 07:06] LABS: ABS Basophils 0.1 10^3/ul (0-0.2); ABS Eosinophils 0.4 10^3/ul (0-0.6); ABS Lymphocytes 1.6 10^3/ul (1.0-4.8); ABS Monocytes 0.8 10^3/ul (0-0.8); ABS Neutrophils 11.4 10^3/ul (1.5-7.7); ABS Nucleated RBC 0 10^3/ul; Eosinophil % 2.5 %; Hematocrit 39 % (33-41); Hemoglobin 12.8 g/dL (12.0-16.0); Mean Corpuscular HGB Conc 33 g/dL (31-36); Mean Corpuscular Hemoglobin 30 pg (27-31); Mean Corpuscular Volume 91 fL (80-97); Nucleated Red Blood Cells % 0.1; Platelet Count 354 10^3/uL (150-450); Red Blood Count 4.29 10^6 /uL (3.70-4.87); Red Cell Distribution Width 14 % (10.5-15); White Blood Count 14.2 10^3/uL (3.5-10.8)
[2018-07-24 07:29] LABS: BUN/Creatinine Ratio 28.6 (8-20); Calcium 7.8 mg/dL (8.6-10.3); EGFR African American 42.9 (>60); EGFR Non-African American 35.5 (>60); Potassium 3.9 mmol/L (3.5-5.0)
[2018-07-24] MEDS: Heparin VIAL(*) 5000 UNITS/ML VIAL (FIVE THOUSAND) SUBCUT SCH ×2 (09:30→20:06)
[2018-07-24] MEDS: NS 0.9% 1000 ML** 1,000 ML IV SCH (09:33)
[2018-07-24] MEDS: Nystatin SUSPENSION* 100000 UNITS/ML 5 ML UDC PO SCH ×5 (09:38→20:06)
[2018-07-24] MEDS: cefTRIAXone(*) 1 GM in NS 0.9% 50 ML* 50 ML IVPB SCH (16:40)
--- NOTE | 2018-07-24 21:33 | PN ---
Subjective Interval History: Pt feeling significantly improved after IVF. She states that her appetite is back and she is having less liquid from the ileostomy. She recounts to me how independent she is at home and how she is looking forward to going back. Her daughter reports that she doesn't feel like her mother is quite back at her baseline and would prefer to see her kidney function get better, since they have had issues with that in the past. Pt reports she ate cabbage at a senior event and thinks she got sick from that, since a stomach bug was going around. After that, she experienced nausea, vomiting, and increase ileostomy output. She was urinating less and eventually had dysurea and was diagnosed (unclear through what method) with a UTI by her PCP and was started on doxy but did not get better. C. diff and stool cultures negative. UCx with proteus 20k CFU. Objective Active Medications: Acetaminophen (Tylenol Tab*) 650 mg PO Q4H PRN PRN Reason: FEVER/PAIN Heparin Sodium (Porcine) (Heparin Vial(*)) 5,000 units SUBCUT Q12HR [facility] Last Admin: 07/24/18 20:06 Dose: 5,000 units Sodium Chloride (Ns 0.9% 1000 Ml) 1,000 mls @ 75 mls/hr IV PER RATE [facility] Last Admin: 07/24/18 09:33 Dose: 75 mls/hr Nystatin (Nystatin Suspension*) 500,000 units PO QID [facility] Stop: 07/30/18 17:14 Last Admin: 07/24/18 20:06 Dose: 500,000 units Vital Signs - 8 hr 07/24/18 15:23 Temperature 97.2 F Pulse Rate 78 Respiratory 22 Rate Blood Pressure 138/34 (mmHg) O2 Sat by Pulse 100 Oximetry Oxygen Devices in Use Now: None Appearance: well appearing, walking around room Ears/Nose/Mouth/Throat: - - thrush + Respiratory: Clear to Auscultation Cardiovascular: RRR Abdominal: NL Sounds; No Tenderness; No Distention, - - no CVA tenderness Skin: No Rash or Ulcers Neurological: Alert and Oriented x 3, NL Gait Result Diagrams: 07/24/18 06:55 07/24/18 06:55 Microbiology and Other Data: Microbiology 07/23/18 17:02 Aerobic Blood Culture - Preliminary Blood Venous No Growth Day 1 Anaerobic Blood Culture - Preliminary No Growth Day 1 07/23/18 10:35 Urine Culture - Preliminary Urine Proteus Mirabilis 07/23/18 12:01 Stool Gross Appearance - Final Stool Shiga Toxin I & II - Final Stool Lactoferrin - Final Stool Occult Blood (COLEEN) - Final 07/23/18 12:01 Stool Gross Appearance - Final Stool C. difficile DNA Amplification - Final 027 Presumptive NEGATIVE Toxigenic C.diff NEGATIVE 07/23/18 10:55 Influenza Types A,B Antigen - Final Nasal Specimen received for Influenza A/B Molecular testing Assess/Plan/Problems-Billing Assessment: 88W with COPD, h/o UC cured with colectomy s/p ileostomy, h/o pancreatitis, presenting with nausea and increased output from ostomy. Found dehydrated and without signs concerning for active infection, with symptoms resolving after IVF. - Patient Problems (1) Gastroenteritis Current Visit: Yes Comment: Multiple sick contacts at senior home. Symptoms largely resolved with IVF. (2) Thrush Comment: Will consider switching ICS to tiotropium (better for COPD too) - nystatin - education with RT on how to use inhalers properly for maximum medication delivery (3) RACHELE (acute kidney injury) Comment: Likely from gastroenteritis, resolving with fluids and now good PO. Unlikely related to low CFU of proteun in urine. (4) COPD (chronic obstructive pulmonary disease) Comment: Likely discharge with tiotropium - better for COPD and pt is having trush on ISC. Will need education on how to properly use inhalers to deliver medication to lungs. (5) DVT prophylaxis Current Visit: No Status: Acute Priority: Medium Code(s): [id number] - SNOMED Code(s): 494716923 Comment: subq hep Status and Disposition: Likely home tomorrow morning.
[2018-07-24] MEDS ORDERED: Melatonin 3 MG TAB PO PRN (23:30)
[2018-07-24] MEDS ORDERED: Melatonin 3 MG TAB PO ONE (23:37)
[2018-07-25 06:33] LABS: ABS Basophils 0.2 10^3/ul (0-0.2); ABS Eosinophils 0.4 10^3/ul (0-0.6); ABS Lymphocytes 1.5 10^3/ul (1.0-4.8); ABS Monocytes 0.7 10^3/ul (0-0.8); ABS Neutrophils 9.1 10^3/ul (1.5-7.7); ABS Nucleated RBC 0 10^3/ul; Eosinophil % 3.6 %; Hematocrit 36 % (33-41); Hemoglobin 11.7 g/dL (12.0-16.0); Lymphocyte % 12.7 %; Mean Corpuscular HGB Conc 33 g/dL (31-36); Mean Corpuscular Hemoglobin 30 pg (27-31); Mean Corpuscular Volume 90 fL (80-97); Mean Platelet Volume 8.3 fL (7.4-10.4); Nucleated Red Blood Cells % 0; Platelet Count 323 10^3/uL (150-450); Red Blood Count 3.95 10^6 /uL (3.70-4.87); Red Cell Distribution Width 14 % (10.5-15)
[2018-07-25 06:48] LABS: BUN/Creatinine Ratio 28.1 (8-20); Calcium 7.9 mg/dL (8.6-10.3); EGFR African American 54.4 (>60); Potassium 3.5 mmol/L (3.5-5.0)
[2018-07-25] MEDS: Nystatin SUSPENSION* 100000 UNITS/ML 5 ML UDC PO SCH (08:18)
[2018-07-25] MEDS: Heparin VIAL(*) 5000 UNITS/ML VIAL (FIVE THOUSAND) SUBCUT SCH (08:18)
[2018-07-25 12:56] VITALS: BP 135/49
--- NOTE | 2018-07-25 13:37 | DS ---
CC: Dr. Arteaga DISCHARGE SUMMARY: DATE OF ADMISSION: 07/23/18 DATE OF DISCHARGE: 07/25/18 PRIMARY CARE PHYSICIAN: Dr. Rocoi Arteaga. DISPOSITION: Home. CONDITION: Good. PRIMARY DIAGNOSIS: 1. viral gastroenteritis 2. dehydration 3. thrush SECONDARY DIAGNOSIS: 1. COPD 2. UC s/p colectomy with ileostomy bag HISTORY OF PRESENT ILLNESS: 88-year-old woman with a history of COPD; ulcerative colitis cured by colectomy , now with ileostomy bag; history of pancreatitis, who is presenting to the emergency room with subacute nausea, vomiting, decreased appetite, and increased output from her ostomy bag. She reports that about 7 days prior to admission, she was eating a meal at the senior home and had food that she thought was bad. Since that time, she had been experiencing nausea and vomiting , which are gradually improving over the last week with persistently increased output from her ostomy bag. A few days prior to presentation, she also began experiencing dysuria. This is in the context of decreased urination likely from dehydration, and she was given doxycycline for presumptive UTI. Because her symptoms overall did not improve, she presented to the emergency room. HOSPITAL COURSE: In the emergency room, she was found to have leukocytosis to the 20s with new elevations in her BUN and creatinine 54/1.96. She was dehydrated per physical exam. She was given IV hydration in the emergency room, and within a few hours, the patient reports she was already feeling better and requested to try some solid foods. She was admitted to Medicine for empiric IV treatment of suspected UTI, although urine cultures during admission eventually resulted with Proteus mirabilis 10,000 to 25,000 CFU. She did have 2 doses of ceftriaxone, but this was discontinued. After IV hydration, her RACHELE improved and her creatinine returned to its baseline and her white blood cell count also decreased. The patient denied abdominal pain, nausea, vomiting, and reported her appetite being back to baseline on day of discharge. Otherwise, 10-point review of systems was negative. Specifically, she did also deny lower urinary tract symptoms or flank pain. Of note during this admission, the patient was noted to have thrush over her oral mucosa. It is suspected that this is from the inhaled corticosteroid that she is receiving for her history of COPD. During this admission, the patient was given education on how to properly use inhalers to deliver medication to her lungs. She was treated with nystatin swish and swallow. It was attempted to switch the patient to preferred COPD treatment to tiotropium, but this was not covered by the patient's insurance. The patient reports she almost never uses her albuterol rescue, so it is possible that she may not need to be on an inhaled corticosteroid daily. DISCHARGE PLAN: The patient is to follow up with her primary care provider within 1 to 2 weeks. She is to resume a normal diet and encouraged oral fluid intake. She can likely stop a daily maintenance inhaler for COPD. If this is attempted and she ends up having more frequent symptoms, she should be started on a LAMA if covered by her insurance plan. MEDICATIONS ON DISCHARGE: 1. Flovent inhaler 1 puff twice a day. Consider discontinuing this medication and tapering off given the patient has rare symptoms. 2. Albuterol 2 puffs q.4 hours as needed for shortness of breath or wheeze. 3. Clotrimazole oral 10 mg dissolve slowly 5 times daily for 10 more days. TIME SPENT: Over 60 minutes was spent on discharge, most of the time spent at bedside for interview, exam, and education. [id number]/CPS #: [id number]
== END 2018-07-25 13:10 | disposition home or self-care (01) | DRG 392 ==
LOC: ED 09:51 → OBSVTOIN 16:40 → MED 16:40
PROVIDERS: ADMIT Hospitalist; ATTEND Internal Medicine
DX: K52.9 Noninfective gastroenteritis and colitis, unspecified (principal); N17.9 Acute kidney failure, unspecified; B37.0 Candidal stomatitis; E86.0 Dehydration; I10 Essential (primary) hypertension; J44.9 Chronic obstructive pulmonary disease, unspecified; E78.5 Hyperlipidemia, unspecified; K21.9 Gastro-esophageal reflux disease without esophagitis; M19.90 Unspecified osteoarthritis, unspecified site; E78.00 Pure hypercholesterolemia, unspecified; T38.0X5A Adverse effect of glucocorticoids and synthetic analogues, initial encounter; M81.0 Age-related osteoporosis without current pathological fracture; M85.80 Other specified disorders of bone density and structure, unspecified site; Z87.442 Personal history of urinary calculi; Z93.2 Ileostomy status; Z90.710 Acquired absence of both cervix and uterus; Z90.49 Acquired absence of other specified parts of digestive tract; Z90.721 Acquired absence of ovaries, unilateral; Z98.42 Cataract extraction status, left eye; Z98.41 Cataract extraction status, right eye; Z80.1 Family history of malignant neoplasm of trachea, bronchus and lung; Z87.891 Personal history of nicotine dependence; Y92.9 Unspecified place or not applicable
CPT/HCPCS: 36415; 80048; 80053; 81003; 81015; 82272; 83605; 83630; 83690; 83735; 85025; 86140; 87040; 87045; 87046; 87077; 87086; 87186; 87493; 99284; A9270-GY; J0696; J1644